=== PATIENT | male | born 1960 | race Asian ===

== ENCOUNTER → 2022-08-17 14:31 | Outpatient (CLI) | payer OTHER, SELFPAY ==
--- NOTE | 2022-08-17 | DI.MRI.S_ITS ---
PROCEDURE: MR LUMBAR SPINE WO CON INDICATIONS: Other intervertebral disc displacement, lumbar region TECHNIQUE: Noncontrast sagittal T1 spin echo and T2 fast echo, sagittal STIR, and T2 fast spin echo through the lumbar spine. In cases with scoliosis, additional coronal T2 fast spin echo may be performed. COMPARISON: None. FINDINGS: Image quality: Excellent. Alignment and Curvature: There is normal bony alignment. Bone Marrow: Marrow is of normal overall signal. No acute vertebral body compression fractures. Spinal Cord: Conus medullaris terminates at the L1-2 level. Visualized cord demonstrates normal signal and size. Abnormal tethering of the spinal roots posterior to the L2 and L3 vertebral bodies. Paraspinous Soft Tissues: No paravertebral masses. T12-L1: Normal appearance. L1-L2: Mild disc height loss. L2-L3: Mild disc height loss with ligamentum flavum hypertrophy causing mild spinal canal narrowing. L3-L4: Severe disc height loss. Broad-based disc bulge. Annular fissure. Facet hypertrophy and ligamentum flavum hypertrophy causing severe spinal canal narrowing. L4-L5: Broad-based disc bulge. Annular fissure. Facet hypertrophy and ligamentum flavum hypertrophy causing moderate to severe spinal canal narrowing. L5-S1: Broad-based disc bulge. 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 Multilevel degenerative disc disease and facet arthrosis. Of note, there is severe spinal canal narrowing at L3-4, mild spinal canal narrowing at L2-3 and moderate to severe spinal canal narrowing at L4-5. Dictated by: Tacho Beatty M.D. on 08/17/2022 at 17:05 Approved by: Tacho Beatty M.D. on 08/17/2022 at 17:09
== END ==
PROVIDERS: PCP Family Medicine; Referring Provider Physical Medicine & Rehabilitation Pain Medicine; Visit Provider Physical Medicine & Rehabilitation Pain Medicine
DX: M51.26 Other intervertebral disc displacement, lumbar region (principal); M47.816 Spondylosis without myelopathy or radiculopathy, lumbar region; M51.36 Other intervertebral disc degeneration, lumbar region; M48.061 Spinal stenosis, lumbar region without neurogenic claudication
CPT/HCPCS: 72148

== ENCOUNTER 2023-04-17 08:22 | Inpatient (IN) | payer OTHER, SELFPAY ==
[2023-04-12 09:43] VITALS: BMI 30.9
[2023-04-17] VITALS (33 sets, daily range): BP systolic 92–141; BP diastolic 52–84; PULSE 80–109; RESP 15–37; TEMP 36.3–37.2; O2SAT 92–100; BMI 29.0
[2023-04-17] MEDS: LACTATED RINGERS 1,000 ML 42 ML IV ×2 (09:46→12:57)
[2023-04-17] MEDS: ACETAMINOPHEN 325 MG TABLET 975 MG PO (09:46)
[2023-04-17] MEDS: FAMOTIDINE 20 MG/2 ML VIAL IV (09:48)
--- NOTE | 2023-04-17 09:52 | SUR.PREOP ---
Began on incentive spirometry. Able to achieve 1750ml
[2023-04-17 10:56] LABS: Allen Test for ABG Passed? Yes, Passed; Blood Gas Collection Site Right Radial; Fractionated Inspired Oxygen 21; HCO3 ABG 25 mmol/L (23-27); Oxygen Saturation ABG 90 % (95-100); PCO2 ABG 39.5 mmHg (35-45); PO2 ABG 59 mmHg (80-100); TCO2 ABG 26 mmol/L (23-27)
--- NOTE | 2023-04-17 11:00 | PM.PREOP ---
Pre-operative Note Interval Note History & Physical reviewed/Exam performed by Physician: Yes Changes to H&P: No
[2023-04-17] MEDS: CEFAZOLIN 2 GM/100 ML PREMIX 100 ML IV ×2 (11:45→20:00)
--- NOTE | 2023-04-17 11:57 | SUR.OPER ---
Prone on spine table, head in foam head support, padded chest and pelvic supports, gel pad at knees, lower legs supported by pillows; nipples, genitalia and toes free of pressure, arms secured on foam padded arm boards at <90 degrees abduction. Tape over blanket at thigh secured to table.
[2023-04-17] MEDS: BUPIVACAINE LIPOSOME 266 MG/20 ML VIAL INJ (12:07)
[2023-04-17] MEDS: BUPIVACAINE 0.25% (PF) 30 ML, EPINEPHrine 0.15 MG INJ (12:08)
--- NOTE | 2023-04-17 13:52 | P.OP_ITS ---
Operative Date/Time/Diagnoses Date of procedure: 04/17/23 Time of procedure: 11:40 Pre-op diagnosis: 1. L3-4, L4-5 spinal stenosis with neurogenic claudication 2. L3-4 disc herniation with radiculopathy Post-op diagnosis: same Procedure & Clinicians Procedure: 1. L3-4 Postero-lateral and posterior interbody fusion 2. L3-4 interbody cage placement. 3. L3-4 decompressive laminectomy with bilateral facetecomies 4. L3-4 Posterior non-segmental instrumentation 5. L4-5 left hemilaminectomy 6. [place] of bone marrow from iliac crest 7. Utilization of microsurgical technique and operating microscope Same procedure as scheduled: Yes Indications: Patient has been having chronic back pain and worsening lumbar radiculopathy and symptoms of neurogenic claudication. Patient failed multiple conservative management with worsening pain weakness and numbness in his lower extremity. Patient has significant lumbar spinal stenosis with a annular cyst causing significant central and lateral recess stenosis at L3-4 and L4-5 level. Patient has been having difficulty performing activity of daily living. After discussing risks benefits of treatment options, patient elected proceed with surgery. Patient was medically optimized prior to scheduling his surgery. Patient's PCP and director of search engine optimization assessed and medically optimized patient prior to scheduling surgery due to his history of long COVID infection with pulmonary fibrosis as result of his infection during the pandemic. Surgeon: Tha Spangler Philosophy Lecturer: Harika Porter Click Yes if Unassisted: No Anesthesia Type: General Operative Notes Closure Type: primary Specimen(s): none sent Prosthetic devices, grafts, tissues, transplants, or devices: Globus revolve screws, Rise cage Applied: catheter Estimated Blood Loss (mL): 200 Blood products transfused: none Procedure in detail: Patient was seen in the preoperative area. Risks and benefits of the surgery was discussed with the patient. Informed consent was obtained from the patient and placed in the chart. Surgical site was marked. Patient was taken to the operative room. General anesthesia was administered. Prophylactic antibiotic was given to the patient less than 30 min before the incision was made. Patient was placed into a prone position on the [place] table. Patient's back was then prepped and draped in the sterile fashion. Time-out was performed at this time. Using AP and lateral C-arm imaging the interval between L3-4 was identified and marked on patient's back. A 2 inch incision 2 in from midline was made on the left side first. The fascia was incised in line with skin incision. Globus MARS retractors was placed inside the incision and docked onto the L3-4 lamina. Using microsurgical technique and operating microscope, a L3 laminectomy and L3- 4 facetectomy was performed using a Kerrison rongeur. The laminectomy and facetectomy was performed in order to decompress patient's cauda equina as well as the nerve roots exiting at the L3-4 level. The disc space at L3-4 was stephanie ntified. And a total diskectomy was performed at L3-4 level. The endplates were decorticated using a rasp and shaver. The total diskectomy and decortication was performed at L3-4 level in order to to accomplish a L3-4 fusion. The local bone from the laminectomy and facetectomy was saved for local bone grafting. After the total diskectomy and decortication was completed, Globus viacell bone graft material was combined with local bone that was harvested earlier. At this time, a separate skin is incision was made over the iliac crest. A Jamshidi needle was inserted into the iliac crest through a separate skin incision. 5 cc of bone marrow aspiration was obtained through the separate skin incision using a Jamshidi needle from the iliac crest. The bone marrow aspiration was combined with local bone and the DBM bone grafting material. The bone grafting material was placed into the L3-4 interbody space along with a expandable cage. The cage was expanded to its maximum height using the torque limiting screwdriver. At this time the MARS retractor was redirected over the L4 lamina. Using microsurgical technique and operating microscope, a L4 heminectomy was performed using the Kerrison rongeur. The ligamentum flavum was also resected at the side of the hemilaminectomy for further decompression of the epidural space. At this time a mirror image incision was made on the right side. The fascia was incised in line with the skin incision. Globus MARS retractor was inserted and docked onto the L3-4 posterolateral gutter. Using the power drill, posterior- lateral decortication was performed at L3-4 level until bleeding cortical bone was identified. The remaining bone grafting material was placed into the L3-4 posterior lateral gutter he order to accomplish posterolateral fusion at the L3- 4 level. Using the double C-arm technique, pedicle screws were placed into the L3 and L4 pedicles bilaterally. This was done by placing the Jamshidi needle into the pedicles, then placing the guidewires over the Jamshidi needle, and finally placing the cannulated screws over the guidewires bilaterally. After the pedicle screws were placed, 2 titanium rods was locked into the heads of the pedicle screws using locking caps and torque limiting screwdriver. After all the hardware was placed, and confirmed with AP and lateral C-arm imaging, the wound was then irrigated with sterile normal saline and packed with Ray-Edmund gauze for 3 min to accomplish hemostasis. After the gauze was removed the deep fascia was closed with #1 Vicryl suture. The subcutaneous layer was closed with 2-0 Vicryl. The skin was closed with skin blayne. Patient tolerated the procedure well. There were no complications. The Operation could not have been safely performed without compromising the technical result or length of the procedure, without the assistance of a skilled surgical nurse practitioner. The surgical nurse practitioner was medically necessary for proper positioning, retraction and manipulation of instruments, proper exposure, surgical preparation, and manipulation of tissue. Complications: none Post-operative Condition: stable Disposition: PACU Plan for aftercare: Admit to inpatient hospital, will direct admit to ICU and keep patient intubated per anesthesia, Dr. Zarate, recommendation. Patient has history of long COVID with extended period of mechanical ventilation in the past with pulmonary fibrosis resulting from his COVID infection/mechanical ventilation in the past. Will attempt extubate tomorrow.
--- NOTE | 2023-04-17 13:53 | DI.RAD.S_ITS ---
PROCEDURE: XR LUMBAR SPINE 2-3V INDICATIONS: L3-4 TLIF TECHNIQUE: 3 views of the lumbar spine were acquired. COMPARISON: None. FINDINGS: 2 intraoperative fluoroscopy images demonstrate discectomy and posterior fusion at L3-L4. Expected postsurgical changes are noted. IMPRESSION: Expected postsurgical changes with discectomy and posterior fusion at L3-L4 Dictated by: Jefferson Colindres M.D. on 04/17/2023 at 14:51 Approved by: Jefferson Colindres M.D. on 04/17/2023 at 14:52
--- NOTE | 2023-04-17 15:00 | DI.RAD.S_ITS ---
PROCEDURE: XR CHEST 1V INDICATIONS: eval ET tube and OG tube TECHNIQUE: One view of the chest was acquired. COMPARISON: None. FINDINGS: Surgical changes and devices: There is an endotracheal tube 3.7 cm above edward. There is an orogastric tube with the tip in the stomach. Lungs and pleura: Bilateral pulmonary infiltrates are present. No pleural effusions or pneumothorax. Mediastinum: Mediastinal contours appear normal. Heart size is normal. Bones and chest wall: No suspicious bony lesions. Overlying soft tissues appear unremarkable. IMPRESSION: 1. Endotracheal tube and orogastric tube as described. 2. Bilateral pulmonary infiltrates compatible with pulmonary edema or bilateral pneumonia. Dictated by: Jefferson Colindres M.D. on 04/17/2023 at 16:25 Approved by: Jefferson Colindres M.D. on 04/17/2023 at 16:26
--- NOTE | 2023-04-17 15:14 | PM.CN.EICU ---
History of Present Illness Consult details IF CAMERA ACTIVATED, patient seen via real-time interactive audiovisual communication: Camera activated Chief complaint: INPT Consent obtained for tele-operator catalyst concentration care: Yes Patient Location: ICU Provider location (State): Other participants/roles: RN Narrative: 62 yr old male with medical H/o of chronic resp failure on 2 L NC, pulmonary fibrosis 2/2 COVID pna 2019 requring chronic trach vent, H/o of HTN, GERD, CVA, JUVENTINO, BPH, her for/ s/p L3-4 Postero-lateral and posterior interbody fusion, pt was kept intubated post op, plan to eval for extubation on Am Assessment: Mechanical vent post op in the sitting of pul fibrosis/ chronic resp failure 2/2 COVID pna 2020 s/p L3-4 Postero-lateral and posterior interbody fusion H/o of HTN GERD, CVA JUVENTINO BPH Plan Keep on the vent for tonight and eval for vent liberation in am Sedation propofol and fentanyl drip, RAAS goal -1 Pending CXR & ABG Vent sitting 20/500/5/50% On pepcid SCD for vte ppx, consider adding chemical when ok with surgery Hold Losartan risk of hypotension and GRECIA Has cerda cath, watch I/O PFSH Medical History (Updated 04/12/23 @ 12:48 by Johana Robles, INDER) Oxygen dependent GERD (gastroesophageal reflux disease) Impaired renal function Numbness Vitamin D deficiency Plantar fasciitis Osteoarthritis Acute dermatitis BPH (benign prostatic hyperplasia) Low back pain Herpes simplex Diabetes Pulmonary fibrosis Chronic hypoxemic respiratory failure Critical illness polyneuropathy COVID-19 long hauler JUVENTINO on CPAP HLD (hyperlipidemia) HTN (hypertension) CVA (cerebral vascular accident) History of COVID-19 Surgical History (Updated 04/12/23 @ 10:02 by Johana Robles RN) Hx of tracheostomy (09/05/19) H/O vasectomy History of colonoscopy (01/10/12) Social History household members: spouse and children Smoking Status: Never smoker alcohol intake: current Current Medications Current Medications Medications: Home Medications aspirin 81 mg tablet,delayed release 81 mg PO DAILY 04/12/23 [History Confirmed 04/17/23] famotidine 20 mg tablet 20 mg PO BEDTIME 04/12/23 [History Confirmed 04/17/23] simvastatin 20 mg tablet 20 mg PO BEDTIME 04/12/23 [History Confirmed 04/17/23] telmisartan 40 mg tablet (Micardis) 40 mg PO BEDTIME 04/12/23 [History Confirmed 04/17/23] Exam Vital Signs (past 8 hours): - 04/17/23 09:13 Temperature 99.0 F Pulse Rate 89 Respiratory Rate 17 Blood Pressure 141/84 H Pulse Oximetry 97 Oxygen Delivery Method Nasal Cannula Oxygen Flow Rate 2 Oxygen Delivery Method Nasal Cannula Oxygen Flow Rate 2 Objective Labs Labs: Laboratory Results - last 24 hr 04/17/23 10:46 ABG Sample Site Right radial ABG pH 7.40 ABG pCO2 39.5 ABG pO2 59 L ABG HCO3 25 ABG Total CO2 26 ABG O2 Saturation 90 L ABG Base Excess 0.0 FiO2 21
--- NOTE | 2023-04-17 15:24 | PM.CALLCOV.1 ---
Call Coverage Note Note Narrative of Care Provided: Medicine consulted
[2023-04-17] MEDS: propofoL 1,000 MG/100 ML VIAL 2.517 MG IV (15:26)
[2023-04-17] MEDS: fentaNYL 1,000 MCG in DEXTROSE 5% IN WATER 230 ML 14.685 MCG IV (15:27)
--- NOTE | 2023-04-17 15:30 | PM.CN ---
History of Present Illness Consult details Date Patient Seen: 04/17/23 Time Patient Seen: 15:30 Chief complaint: INPT Reason for consult: Restraints Requesting provider: Tha Spangler Narrative: 62 yr old male with medical H/o of chronic resp failure on 2 L NC, pulmonary fibrosis 2/2 COVID pna 2020 requring chronic trach vent, H/o of HTN, GERD, CVA, JUVENTINO, BPH, her for/ s/p L3-4 Postero-lateral and posterior interbody fusion, pt was kept intubated post op. Vent being managed by the tele-computer systems technician. Reason for consultation at this time is for restraint orders as Orthopedics providers are not trained in restraints and tele-computer systems technician service will not put these in either. Patient is currently intubated, restraints are needed to prevent patient from removing ETT. Meds Home Medications and Allergies Home Medications Medication Instructions Recorded Confirmed Type aspirin 81 mg tablet,delayed 81 mg PO DAILY 04/12/23 04/17/23 History release famotidine 20 mg tablet 20 mg PO BEDTIME 04/12/23 04/17/23 History simvastatin 20 mg tablet 20 mg PO BEDTIME 04/12/23 04/17/23 History telmisartan 40 mg tablet (Micardis) 40 mg PO BEDTIME 04/12/23 04/17/23 History Allergies Allergy/AdvReac Type Severity Reaction Status Date / Time No Known Drug Allergies Allergy Verified 04/17/23 13:43 Review of Systems Review of Systems Narrative: Unable to perform as patient is intubated. Exam Vital Signs (past 8 hours): - 04/17/23 09:13 Temperature 99.0 F Pulse Rate 89 Respiratory Rate 17 Blood Pressure 141/84 H Pulse Oximetry 97 Oxygen Delivery Method Nasal Cannula Oxygen Flow Rate 2 Oxygen Delivery Method Nasal Cannula Oxygen Flow Rate 2 Narrative Exam Narrative: Gen: intubated, moving all extremities CV: RRR Objective ECG Impression: NSR with no ischemia Labs Labs: Laboratory Results - last 24 hr 04/17/23 10:46 ABG Sample Site Right radial ABG pH 7.40 ABG pCO2 39.5 ABG pO2 59 L ABG HCO3 25 ABG Total CO2 26 ABG O2 Saturation 90 L ABG Base Excess 0.0 FiO2 21 PFSH Medical History (Updated 04/12/23 @ 12:48 by Johana Robles RN) Oxygen dependent GERD (gastroesophageal reflux disease) Impaired renal function Numbness Vitamin D deficiency Plantar fasciitis Osteoarthritis Acute dermatitis BPH (benign prostatic hyperplasia) Low back pain Herpes simplex Diabetes Pulmonary fibrosis Chronic hypoxemic respiratory failure Critical illness polyneuropathy COVID-19 long hauler JUVENTINO on CPAP HLD (hyperlipidemia) HTN (hypertension) CVA (cerebral vascular accident) History of COVID-19 Surgical History (Updated 04/12/23 @ 10:02 by Johana Robles RN) Hx of tracheostomy (09/05/19) H/O vasectomy History of colonoscopy (01/10/12) Social History household members: spouse and children Tobacco & Substance Use Smoking Status: Never smoker alcohol intake: current Assessment & Plan Assessment & Plan narrative: 62 yr old male with medical H/o of chronic resp failure on 2 L NC, pulmonary fibrosis 2/ COVID pna 2019 requring chronic trach vent, H/o of HTN, GERD, CVA, JUVENTINO, BPH, her for/ s/p L3-4 Postero-lateral and posterior interbody fusion, pt was kept intubated post op. Vent being managed by the tele-computer systems technician. Reason for consultation at this time is for restraint orders as Orthopedics providers are not trained in restraints and tele-computer systems technician service will not put these in either. 1. Acute on chronic hypoxemic respiratory failure - continue management per tele-computer systems technician service - patient requires restraints to prevent removal of ETT at this time as he is unable to reliably follow commands while on sedation for continued ventilator management of his respiratory failure. Code: full, surrogate is patient's spouse DVT: per primary I have utilized all available immediate resources to obtain, update, or review the patient's current medications. Discussed above with orthpedics provider and MASTER DATA ANALYST, and ammunition assembly ii laborer.
[2023-04-17] MEDS: ALBUTEROL/IPRATROPIUM 3 ML AMPUL INH (15:35)
[2023-04-17] MEDS: LACTATED RINGERS 1,000 ML 125 ML IV (15:35)
[2023-04-17 15:56] LABS: Blood Gas Other Coll. Site A-LINE; Fractionated Inspired Oxygen 35; HCO3 ABG 22 mmol/L (23-27); Oxygen Saturation ABG 99 % (95-100); PCO2 ABG 38.8 mmHg (35-45); PO2 ABG 137 mmHg (80-100); TCO2 ABG 23 mmol/L (23-27); pH ABG 7.36 (7.35-7.45)
--- NOTE | 2023-04-17 16:23 | RT ---
PT EXTUBATED POST SUCCESSFUL WEANING TRIAL PER ORDER BY DR. HARGROVE. ABG NOT NEED PER ORDER POST TRIAL.
[2023-04-17] MEDS: HYDROMORPHONE 0.5 MG INJ IV (16:45)
[2023-04-17 16:46] LABS: Add Manual Diff / Slide Review NO; Basophils Absolute Auto 0 /uL (0-100); Basophils Percent Auto 0.1 % (0-2); Eosinophils Absolute Auto 0 /uL (0-450); Eosinophils Percent Auto 0.1 % (2-4); Hematocrit 42.1 % (41-53); Hemoglobin 14.4 g/dL (13.5-17.5); Lymphocytes Absolute Auto 1100 /uL (1100-4500); Lymphocytes Percent Auto 5.2 % (25-40); Mean Corpuscular HGB Conc 34.2 % (30-36); Mean Corpuscular Hemoglobin 32.5 PG (26-34); Mean Corpuscular Volume 95.1 fL (80-100); Monocytes Absolute Auto 1000 /uL (0-900); Monocytes Percent Auto 4.7 % (3-14); Neutrophils Absolute Auto 18400 /uL (1500-7000); Neutrophils Percent Auto 89.9 % (50-75); Platelet Count 200 X10^3/uL (150-400); Red Blood Cell Count 4.43 X10^6/uL (4.5-5.9); Red Cell Distribution Width 12.7 % (11.6-14.8); White Blood Cell Count 20.5 X10^3/uL (4.5-11.0)
[2023-04-17 17:30] LABS: Albumin 3.8 g/dL (3.5-5.0); BUN Creatinine Ratio 13.1 (6-22); Blood Urea Nitrogen 14 mg/dL (9-20); Calcium 9.3 mg/dL (8.4-10.2); Carbon Dioxide 22 mmol/L (22-32); Chloride 103 mmol/L (98-107); Estimated Glomerular Filt Rate > 60 mL/min (>60); Glucose 159 mg/dL (80-110); HEMOLYSIS 41 (0-50); Phosphorous 3.3 mg/dL (2.3-3.7); Potassium 4.1 mmol/L (3.4-5.1); Sodium 135 mmol/L (137-145)
--- NOTE | 2023-04-17 18:53 | PC.NURSE ---
1450 pt arrived in rm 227 intubated from the OR. placed on the vent per RT 50% fio2 500TV, rate 20 peep +5. Propofol in progress at 35mcg/kg and pt awake, responding to commands. order received for restraints, OG tube and cerda cath. Pt continued awake and trying to communicate, EICU called re pt awake status and orders received to place on pressure support 5/5 - Pt extubated per RT @ 1715. VSS, [place] removed, cerda and OG removed. Pt awake and talking.
[2023-04-17 19:43] LABS: MRSA (Nasal) PCR Not Detected (Not Detect)
[2023-04-17] MEDS: OXYCODONE IR 10 MG TABLET PO (19:47)
[2023-04-17] MEDS: ATORVASTATIN 20 MG TABLET 10 MG PO (20:53)
[2023-04-17] MEDS: SENNOSIDES 8.6 MG TABLET 17.2 MG PO (20:54)
[2023-04-17] MEDS: DOCUSATE 100 MG CAPSULE PO (20:54)
[2023-04-17] MEDS: FAMOTIDINE 20 MG TABLET PO (20:54)
[2023-04-18] VITALS (40 sets, daily range): BP systolic 119–138; BP diastolic 57–82; PULSE 76–110; RESP 16–35; TEMP 36.4–37.9; O2SAT 89–100
[2023-04-18] MEDS: LACTATED RINGERS 1,000 ML 125 ML IV (00:05)
[2023-04-18] MEDS: OXYCODONE IR 10 MG TABLET PO ×5 (00:12→17:41)
[2023-04-18] MEDS: CEFAZOLIN 2 GM/100 ML PREMIX 100 ML IV (03:15)
[2023-04-18] MEDS: ACETAMINOPHEN 325 MG TABLET 650 MG PO ×3 (04:26→17:41)
--- NOTE | 2023-04-18 08:24 | PM.PNPO.1 ---
Subjective Subjective Date Patient Seen: 04/18/23 Time Patient Seen: 08:00 Interval history: Patient is found today lying in bed. He is just voided on his own. Complains of pain in his back. Says that he would like cough but whenever he does so he has pain in his back. Denies feeling feverish or ill but his is concerned that he is warm to the touch. Denies any new numbness or tingling down his lower legs. Exam Vital Signs (past 8 hours): - 04/18/23 04:00 04/18/23 04:26 04/18/23 04:26 Temperature 100.3 F H 100.3 F H 100.3 F H Pulse Rate 97 H Respiratory Rate 22 Blood Pressure 125/71 Pulse Oximetry 95 Oxygen Flow Rate 3 04/18/23 05:03 04/18/23 06:00 04/18/23 06:39 Temperature 100.3 F H 100 F H 100 F H Pulse Rate Respiratory Rate Blood Pressure Pulse Oximetry Oxygen Flow Rate 04/18/23 08:07 Temperature 99.1 F Pulse Rate 110 H Respiratory Rate 30 H Blood Pressure 119/57 L Pulse Oximetry 92 Oxygen Flow Rate 3 Oxygen Delivery Method Nasal Cannula,CPAP Oxygen Flow Rate 3 Narrative Exam Narrative: Dressing is well-maintained no signs of drainage. Able to dorsal and plantar flex against resistance bilaterally. No posterior calf or thigh pain bilaterally. Resp Effort & Inspection: normal respiratory effort and able to speak in complete sentences Objective Imaging Chest x-ray: Radiologist's impression: Bilateral pulmonary infiltrates Labs 04/17/23 16:30 04/17/23 16:30 Labs: Laboratory Results - last 24 hr 04/17/23 04/17/23 04/17/23 10:46 15:47 16:30 WBC 20.5 H RBC 4.43 L Hgb 14.4 Hct 42.1 MCV 95.1 MCH 32.5 MCHC 34.2 RDW 12.7 Plt Count 200 Neut % (Auto) 89.9 H Lymph % (Auto) 5.2 L [place] % (Auto) 4.7 Eos % (Auto) 0.1 L Baso % (Auto) 0.1 Neut # (Auto) 40423 H Lymph # (Auto) 1100 [place] # (Auto) 1000 H Eos # (Auto) 0 Baso # (Auto) 0 Sample Site A-line ABG Sample Site Right radial ABG pH 7.40 7.36 ABG pCO2 39.5 38.8 ABG pO2 59 L 137 H ABG HCO3 25 22 L ABG Total CO2 26 23 ABG O2 Saturation 90 L 99 ABG Base Excess 0.0 -4.0 L FiO2 21 35 Sodium 135 L Potassium 4.1 Chloride 103 Carbon Dioxide 22 BUN 14 Creatinine 1.07 Estimated GFR > 60 BUN/Creatinine Ratio 13.1 Glucose 159 H Calcium 9.3 Phosphorus 3.3 Albumin 3.8 Nasal Screen MRSA (PCR) 04/17/23 16:46 WBC RBC Hgb Hct MCV MCH MCHC RDW Plt Count Neut % (Auto) Lymph % (Auto) [place] % (Auto) Eos % (Auto) Baso % (Auto) Neut # (Auto) Lymph # (Auto) [place] # (Auto) Eos # (Auto) Baso # (Auto) Sample Site ABG Sample Site ABG pH ABG pCO2 ABG pO2 ABG HCO3 ABG Total CO2 ABG O2 Saturation ABG Base Excess FiO2 Sodium Potassium Chloride Carbon Dioxide BUN Creatinine Estimated GFR BUN/Creatinine Ratio Glucose Calcium Phosphorus Albumin Nasal Screen MRSA (PCR) Not detected [facility] Medical History (Updated 04/12/23 @ 12:48 by Johana Robles RN) Oxygen dependent GERD (gastroesophageal reflux disease) Impaired renal function Numbness Vitamin D deficiency Plantar fasciitis Osteoarthritis Acute dermatitis BPH (benign prostatic hyperplasia) Low back pain Herpes simplex Diabetes Pulmonary fibrosis Chronic hypoxemic respiratory failure Critical illness polyneuropathy COVID-19 long hauler JUVENTINO on CPAP HLD (hyperlipidemia) HTN (hypertension) CVA (cerebral vascular accident) History of COVID-19 Surgical History (Updated 04/12/23 @ 10:02 by Johana Robles RN) Hx of tracheostomy (09/05/19) H/O vasectomy History of colonoscopy (01/10/12) Social History household members: spouse and children Smoking Status: Never smoker alcohol intake: current Assessment & Plan Post-op Postoperative Procedures: Procedures Operation Date: 04/17/23 10:45 Actual Procedure Side Surgeon p L3-4 TLIF L4-5 left hemilaminectomy Tha Spangler MD Postoperative day: 1 Postoperative status: doing well Postoperative status narrative: Intubate of tube and restraints were removed yesterday. X-rays performed yesterday read as pulmonary bilateral infiltrates. Pain controlled with oral medications. Postoperative plan narrative: Multimodal pain control. Work with physical therapy today. Contacted on-call director fixed income. Upon his review of the case did not feel the patient had acute pneumonia. Upon review of his lab findings recommend the following orders. 1. Downgrade out of ICU to acute care. 2. Order CBC, procalcitonin and sputum culture. 3. Consult hospitalist for medical management. Hospitalist was notified. Time Spent With Patient Time with patient: less than 15 minutes Quality VTE Deep Vein Thrombosis/Pulmonary Embolism Present on Admission: No
[2023-04-18] MEDS: DOCUSATE 100 MG CAPSULE PO ×2 (08:31→20:43)
[2023-04-18 10:11] LABS: Add Manual Diff / Slide Review NO; Basophils Absolute Auto 100 /uL (0-100); Basophils Percent Auto 0.4 % (0-2); Eosinophils Absolute Auto 0 /uL (0-450); Eosinophils Percent Auto 0.1 % (2-4); Hematocrit 40.4 % (41-53); Hemoglobin 13.7 g/dL (13.5-17.5); Lymphocytes Absolute Auto 900 /uL (1100-4500); Lymphocytes Percent Auto 5.6 % (25-40); Mean Corpuscular HGB Conc 33.8 % (30-36); Mean Corpuscular Hemoglobin 31.9 PG (26-34); Mean Corpuscular Volume 94.4 fL (80-100); Monocytes Absolute Auto 1400 /uL (0-900); Monocytes Percent Auto 8.8 % (3-14); Neutrophils Absolute Auto 13800 /uL (1500-7000); Neutrophils Percent Auto 85.1 % (50-75); Platelet Count 209 X10^3/uL (150-400); Red Blood Cell Count 4.28 X10^6/uL (4.5-5.9); White Blood Cell Count 16.3 X10^3/uL (4.5-11.0)
[2023-04-18 10:15] LABS: Alanine Aminotransferase 29 IU/L (<50); Albumin Globulin Ratio 1.1 (1.0-2.8); Alkaline Phosphatase 69 U/L (38-126); Aspartate Aminotransferase 85 IU/L (17-59); BUN Creatinine Ratio 11.3 (6-22); Bilirubin Total 1.1 mg/dL (0.2-1.3); Blood Urea Nitrogen 11 mg/dL (9-20); Calcium 9.3 mg/dL (8.4-10.2); Carbon Dioxide 27 mmol/L (22-32); Chloride 97 mmol/L (98-107); Estimated Glomerular Filt Rate > 60 mL/min (>60); Globulin 3.5 g/dL (1.7-4.1); Glucose 149 mg/dL (80-110); HEMOLYSIS < 15 (0-50); Magnesium 1.8 mg/dL (1.6-2.3); Potassium 3.8 mmol/L (3.4-5.1); Sodium 133 mmol/L (137-145); Total Protein 7.5 g/dL (6.3-8.2)
[2023-04-18 10:31] LABS: Procalcitonin 0.23 ng/mL (<0.5)
[2023-04-18 11:32] LABS: Adenovirus Not Detected (Not Detect); B. parapertussis Not Detected (Not Detecte); Bordetella pertussis Not Detected (Not Detect); Chlamydophila pneumoniae Not Detected (Not Detect); Coronavirus 229E Not Detected (Not Detect); Coronavirus HKU1 Not Detected (Not Detect); Coronavirus NL 63 Not Detected (Not Detect); Coronavirus OC43 Not Detected (Not Detect); Human Metapneumovirus Not Detected (Not Detect); Human Rhinovirus/Enterovirus Not Detected (Not Detect); Influenza A Not Detected (Not Detect); Influenza B Not Detected (Not Detect); Mycoplasma pneumoniae Not Detected (Not Detect); Parainfluenza Virus 1 Not Detected (Not Detect); Parainfluenza Virus 2 Not Detected (Not Detect); Parainfluenza Virus 3 Not Detected (Not Detect); Parainfluenza Virus 4 Not Detected (Not Detect); Respiratory Syncytial Virus Not Detected (Not Detect); SARS- CoV-2 Not Detected (Not Detecte)
--- NOTE | 2023-04-18 11:45 | OT.IP.EVAL ---
Current Diagnoses Spondylosis without myelopathy or radiculopathy, lumbar region (04/17/23) Spinal stenosis, lumbar region with neurogenic claudication (04/17/23) Surgery Performed Operation Date: 04/17/23 10:45 Actual Procedures p L3-4 TLIF L4-5 left hemilaminectomy - Tha Spangler MD Past Medical History (Last Updated 04/12/23 @ 12:48 by Johana Robles, RN) Acute dermatitis BPH (benign prostatic hyperplasia) Chronic hypoxemic respiratory failure COVID-19 long hauler Critical illness polyneuropathy CVA (cerebral vascular accident) Diabetes GERD (gastroesophageal reflux disease) Herpes simplex History of COVID-19 HLD (hyperlipidemia) HTN (hypertension) Impaired renal function Low back pain Numbness JUVENTINO on CPAP Osteoarthritis Oxygen dependent Plantar fasciitis Pulmonary fibrosis Vitamin D deficiency Surgical History (Last Updated 04/12/23 @ 10:02 by Johana Robles RN) H/O vasectomy History of colonoscopy (01/10/12) Hx of tracheostomy (09/05/19) Occupational Therapy Inpatient Evaluation/Re-Eval M1 PT/OT-IP Prior Functional Status Start: 04/18/23 11:49 Freq: NEEDED Status: Active Protocol: Document 04/18/23 11:50 [facility] (Rec: 04/18/23 12:08 [facility] [id number]) Medical Review Prior Functional Status Communication independent Mobility and Gait Independent and did not use a device but had pain. Activities of Daily Living and IADL's Pt had pain during ADL and IADl needs. Social History Household Members spouse,children Living Arrangements House Number of Floors (Floors) One Floor Number of Stairs To Enter/Railing? NO steps. Home Environment Standard Height Toilet,Tub/ Shower Home Equipment Four Wheel Walker,Bed Rails Additional Social History Comment Pt to be able to stay at home with him to assist. Pt has a high bed at home and use of a step. M2 OT-IP Current Condition Start: 04/18/23 11:49 Freq: Status: Active Protocol: Document 04/18/23 11:50 [facility] (Rec: 04/18/23 12:08 [facility] [id number]) Occupational Therapy Current Condition Current Condition Evaluation Date 04/18/23 Treatment Diagnosis S/P L3-4 TLIF, L4-5 left hemilaminectomy, acute on chronic hypoxemic Diagnosis Onset Date 04/17/23 M3 OT- IP Subjective and Pain Start: 04/18/23 11:49 Freq: Status: Active Protocol: Document 04/18/23 11:50 [facility] (Rec: 04/18/23 12:08 [facility] [id number]) OT- Subjective Occupational Therapy Visit Type Type Initial Evaluation Visit Start Time 11:20 Visit Stop Time 11:45 Total Visit Minutes 25 Occupational Therapy Visit Comments Patient Comments Pt wanting to get up. Patient/Caregiver Goals TO go home. OT Pain Assessment Pain When Pain Assessed At Rest Pain Present Pain Present Denied Pain M4 OT- IP ADL's Start: 04/18/23 11:49 Freq: Status: Active Protocol: Document 04/18/23 11:50 [facility] (Rec: 04/18/23 12:08 [facility] [id number]) OT [id number] Comments OT Self-Feeding Comments NOt at meal time, no issues anticipated. OT ADL-Grooming Comments OT Grooming Comments Not performed. OT ADL-Oral Care Comments Oral Care Comments Not performed. OT ADL-Dressing General Eval Lower Body Dressing Ability Maximum Assistance Areas Needing Assistance Socks Comments OT Dressing Comments Pt has a supportive to assist for his needs. OT ADL-Toileting General Evaluation Toileting Ability Minimal Assistance Areas Needing Assistance Perform Perineal Hygiene Comments OT Toileting Comments Pt able to stand with the FWW with TONI and assist to hold the urinal in place. OT ADL-Bathing Comments OT Bathing Comments Not performed, pt will benefit from a shower chair and HHS spray. Educated pt's best to cover the dressing for showering needs. M5 OT- IP IADL's Start: 04/18/23 11:49 Freq: Status: Active Protocol: Document 04/18/23 11:50 [facility] (Rec: 04/18/23 12:08 [facility] [id number]) OT-Instrumental Activities of Daily Living Deficits IADL Deficits Identified Deficits Home Safety Awareness Home Safety Comments Pt has a supportive to assist with his needs. Meal Preparation Meal Preparation Caregiver Provides Assist Hairspring Studder Hairspring Studder Caregiver Provides Assist M6 OT- IP Functional Cognition Start: 04/18/23 11:49 Freq: Status: Active Protocol: Document 04/18/23 11:50 [facility] (Rec: 04/18/23 12:08 [facility] [id number]) Cognitive Factors Limiting Selfcare Function Cognitive Ability Level of Alertness Alert Patient Orientation Name,Age,Birthday,Month,Date, Year,Day of Week,Place, Situation Attention Span Ability Capable of Focused Attention, Capable of Sustained Attention Ability to Follow Commands Able to Follow One Step Commands Cognitive Comments Cognitive Assessment Comments Pt able to states his back precautions and needing reminders to slow down. VC for hand placement as pt tends to want to grab the FWW to stand . Pt is also a little impulsive. OT- Vision and Hearing OT- Hearing Assessment OT- Hearing Assessment WFL M7 OT- IP Mobility and Balance Start: 04/18/23 11:49 Freq: Status: Active Protocol: Document 04/18/23 11:50 [facility] (Rec: 04/18/23 12:08 [facility] [id number]) OT- Bed Mobility Assessment Supine to Sit Supine to Sit Assist Standby Assistance OT-Transfer Assessment Sit to and From Stand Sit to and from Stand Minimal Assistance,2 Person Assistance Transfers Transfer Ability Minimal Assistance,2 Person Assistance Technique Transfer Destination Bed,Chair Transfer Technique Stand Step Pivot Devices Transfer Assistive Devices Gait Belt,Front Wheeled Walker Comments Mobility Comments SBA with use of bed rail to get up. TONI x2 to stand to the FWW and for the transfer- assist for balance and to help guide the FWW and manage all the tubing needs. OT- Balance Assessment Sitting Balance and Reactions Static Sitting Balance Ability Good Dynamic Sitting Balance Ability Fair Standing Balance and Reactions Static Standing Balance Ability Fair Dynamic Standing Balance Ability Poor M9 OT- IP Assessment and Plan Start: 04/18/23 11:49 Freq: Status: Active Protocol: Document 04/18/23 11:50 [facility] (Rec: 04/18/23 12:08 [facility] [id number]) OT Summary Assessment and Plan Potential Rehabilitation Potential Good Analytic Complexity at Evaluation High Summary OT Impairments Strength,Balance,Functional Mobility,Grooming,Dressing, Toileting,Bathing,Toilet Transfers,Shower Transfers, Activity Tolerance Progress Towards Goals Progressing Toward Goals Assessment Summary Pt high complexity due to recent back sx and acue on chronic hypoxemic respiratory failure and main barriers are a little impulsive, and will now need assist for ADL and mobility needs. Pt has a very supportive to be able to assist pt at home. Continue to do caregiver training ,go over LB dressing equipment needs and pt to go home with assist with medically stable. Goals Grooming Goal Independent Dressing Goal Minimal Assistance Toileting Goal Independent Bathing Goal Standby Assistance Toilet Transfer Goal Independent Shower Transfer Goal Standby Assistance Days to Meet Goals 5 Frequency of Treatment Frequency Of Treatment Once a Day Treatment Plan OT Treatment Plan ADL Training,Functional Mobility,Patient/Family Education,Discharge Planning Discharge Recommendations OT Discharge Recommendations Home with Assistance Home Equipment Needs shower chair, hand held shower spray Transportation Needs at Discharge Private Vehicle
--- NOTE | 2023-04-18 12:01 | PT.IIE ---
Current Diagnoses Spondylosis without myelopathy or radiculopathy, lumbar region (04/17/23) Spinal stenosis, lumbar region with neurogenic claudication (04/17/23) Surgery Performed Operation Date: 04/17/23 10:45 Actual Procedures p L3-4 TLIF L4-5 left hemilaminectomy - Tha Spangler MD Surgical History (Last Updated 04/12/23 @ 10:02 by Johana Robles, RN) H/O vasectomy History of colonoscopy (01/10/12) Hx of tracheostomy (09/05/19) Medical History (Last Updated 04/12/23 @ 12:48 by Johana Robles, RN) Acute dermatitis BPH (benign prostatic hyperplasia) Chronic hypoxemic respiratory failure COVID-19 long hauler Critical illness polyneuropathy CVA (cerebral vascular accident) Diabetes GERD (gastroesophageal reflux disease) Herpes simplex History of COVID-19 HLD (hyperlipidemia) HTN (hypertension) Impaired renal function Low back pain Numbness JUVENTINO on CPAP Osteoarthritis Oxygen dependent Plantar fasciitis Pulmonary fibrosis Vitamin D deficiency Physical Therapy Inpatient Evaluation/Re-Eval M1 PT/OT-IP Prior Functional Status Start: 04/18/23 08:25 Freq: NEEDED Status: Active Protocol: Document 04/18/23 11:20 [facility] (Rec: 04/18/23 12:01 [facility] [id number]) Medical Review Prior Functional Status Medical History Reviewed Yes Communication WNLs Mobility and Gait Pt reports he is I at baseline and has not used his rollator that he got after he had COVID in 2020 for a long time Activities of Daily Living and IADL's I Social History Household Members spouse,children Living Arrangements House Number of Stairs To Enter/Railing? No steps to enter Home Environment Standard Height Toilet,Tub/ Shower Home Equipment Four Wheel Walker Employment Status Unknown M2 PT-IP Current Condition Start: 04/18/23 08:25 Freq: NEEDED Status: Active Protocol: Document 04/18/23 11:20 [facility] (Rec: 04/18/23 12:01 [facility] [id number]) Physical Therapy Current Condition Current Condition Evaluation Date 04/18/23 Treatment Diagnosis L3-4 posterior interbody fusion, L4-5 L hemilaminectomy M3 PT-IP Subjective Start: 04/18/23 08:25 Freq: NEEDED Status: Active Protocol: Document 04/18/23 11:20 [facility] (Rec: 04/18/23 12:01 [facility] [id number]) Subjective Physical Therapy Visit Type Type Initial Evaluation Visit Start Time 11:20 Visit Stop Time 11:40 Total Visit Minutes 20 Number of RADIOLOGY INTERVENTIONAL PHYSICIAN Visits 0 Physical Therapy Visit Comments Patient Comments When can I bungee jump? Therapy Pain Assessment Pain When Pain Assessed During Mobility Pain Present Pain Present Pain Reported Location Back Intensity 2 Scale Used Numeric (0 - 10) Description Acute Pain Behaviors Guarding M4 PT-IP Mobility and Gait Start: 04/18/23 08:25 Freq: NEEDED Status: Active Protocol: Document 04/18/23 11:20 [facility] (Rec: 04/18/23 12:01 [facility] [id number]) PT-Bed Mobility Assessment Rolling Type of Rolling Log Rolling,Roll to Right Level of Assist Contact Guard Assistance,1 Person Assistance Supine to Sit Supine to Sit Contact Guard Assistance,1 Person Assistance,Bedrails Scooting Scooting to Edge of Bed Contact Guard Assistance PT-Transfer Assessment Sit to and From Stand Sit to and from Stand Minimal Assistance,2 Person Assistance,Use of Upper Extremities Equipment Transfer Assistive Device Gait Belt,Front Wheeled Walker Orthotic/Prosthetic Devices or Brace: No Transfers Transfer Destination Chair Transfer Technique Stepping with RW Transfer Ability Level of Assist Minimal Assistance,2 Person Assistance,Use of Upper Extremities Comments Mobility Comments +2 person min A for mobility this first time OOB in the ICU given multiple lines and pt's respiratory history. His O2 sats on 2L remain 90-92% when checked during treatment and he does get tachycardic with HR up to 127 BPM. He does not c/o high pain and does appear to fatigue quickly: +2 assistance for safety and for line management Gait Assessment Gait Gait Assistance Required: Minimum Assistance,2 Person Assist Distance (Feet) 3 Able to Maintain Weight Bearing Status Yes During Gait Assistive Devices Assistive Device Gait Belt,Front Wheeled Walker Orthotic/Prosthetic Devices or Brace: No Gait Deviations General Gait Pattern Antalgic Factors Limiting Gait Function Factors Limiting Gait Function Decreased Activity Tolerance, Poor Balance,Poor Safety Awareness,Respiratory Distress Comments Gait Comments Pt with slow mobility, decreased step-length and foot clearance, cues to stay on task as he is easily distractable PT-Balance Assessment Sitting Balance and Reactions Static Sitting Balance Ability Fair Dynamic Sitting Balance Ability Fair Standing Balance and Reactions Static Standing Balance Ability Fair Dynamic Standing Balance Ability Fair Device Used RW M5 PT-IP Objective Assessments Start: 04/18/23 08:25 Freq: NEEDED Status: Active Protocol: Document 04/18/23 11:20 [facility] (Rec: 04/18/23 12:01 [id number]) Orientation Orientation/Cognition Level of Alertness Alert Orientation Name,Age,Birthday,Month,Date, Year,Day of Week,Place, Situation Language Function Ability No Deficits Noted Safety Awareness Decreased Safety Awareness Memory Description Short Term Impaired,Insolvency Practitioner Impaired Gross Range of Motion Upper Extremity ROM Impairments Defer to OT Lower Extremity ROM Assessment Left Impaired Impairments LLE has decreased muscle mass compared to the right and pt states it is d/t polyneuropathy from when he had COVID in 2019 and was on the vent for 4 months Strength Lower Extremity Strength Assessment Left Impaired Comments Strength Comments Pt does not tolerate MMT today and his LLE appears to have less muscle mass than the right Sensation Assessment Comments Sensation Comments Polyneuropathy affecting LLE the most post-covide and intubated for 4 months in 2019 M6 PT-IP Treatment Start: 04/18/23 08:25 Freq: NEEDED Status: Active Protocol: Document 04/18/23 11:20 [facility] (Rec: 04/18/23 12:01 [id number]) Physical Therapy Treatment Education Education Provided Post-Op Packet,Safety M7 PT-IP Assessment and Plan Start: 04/18/23 08:25 Freq: NEEDED Status: Active Protocol: Document 04/18/23 11:20 [facility] (Rec: 04/18/23 12:01 [id number]) PT Summary Assessment and Plan Potential Rehabilitation Potential Fair Status of Condition at Evaluation Evolving Summary Impairments Pain,Balance,Bed Mobility, Transfers,Gait,Activity Tolerance Progress Towards Goals Slow Progress due to Medical Issues Assessment Summary Pt is a pleasant 62 y/o who jokes freely and is somewhat impulsive on the evaluation. Evaluation is in the ICU and pt is hooked up to many lines and is wearing 2L O2, which he also uses at home since he had COVID and was on the vent for 4 months in 2019. Pt has tachycardia on the evaluation and requires 2 person min A for the first time up. He will benefit from ongoing PT in the acute and post-acute settings to improve functional mobility. Pt would like to go home with his and do OPPT in [place] when he is cleared by surgeon. Goals Bed Mobility Goal Independent Transfer Goal Independent,Front Wheeled Walker Gait Goal Independent,Front Wheel Walker Gait Distance 100 Other Goals Pt may progress to LRAD as appropriate. He has a 4WRW at home. Days to Meet Goals 5 Frequency of Treatment Frequency Of Treatment Twice a Day Treatment Plan Physical Therapy Treatment Plan Bed Mobility Training,Transfer Training,Gait Training, Therapeutic Exercise,Balance Retraining,Post Op Education, Discharge Planning, Neuromuscular Re-ed Precautions Lumbar Precautions Log Roll,No Twisting,Limit Bending,Lifting Restriction of 10 lbs,Gait Belt above Incisional Area Weight Bearing Status Weight Bearing Status Weight Bear as Tolerated Recommendations To Nursing Amount of Assist Needed 2 Person Assist Discharge Recommendations PT Discharge Recommendations Home with 21/11 Assist Available,Outpatient PT Transportation Needs at Discharge Private Vehicle
--- NOTE | 2023-04-18 13:49 | P.PN_ITS ---
Subjective Subjective Interval history: Extubated successfull this morning. Currently on 3L o2. WBC improving. Respiratory panel ordered with findings, procalcitonin is 0.23. For now will continue to monitor off antibiotics. Reports abdominal bloating today, last BM on 04/16. Has some nausea but no vomiting. He reports no difficulty breathing, reports no cough, rhinorrhea. Exam Vital Signs (past 8 hours): - 04/18/23 06:00 04/18/23 06:39 04/18/23 08:07 Temperature 100 F H 100 F H 99.1 F Pulse Rate 110 H Respiratory Rate 30 H Blood Pressure 119/57 L Pulse Oximetry 92 Oxygen Delivery Method Oxygen Flow Rate 3 04/18/23 10:16 Temperature Pulse Rate Respiratory Rate Blood Pressure Pulse Oximetry Oxygen Delivery Method Nasal Cannula Oxygen Flow Rate Oxygen Delivery Method Nasal Cannula Oxygen Flow Rate 3 Narrative Exam Narrative: Gen: No acute distress CV: RRR no m/r/g Pulm: bibasilar rhonchi Abd: soft, mild distension, non-tender Ext: No edema Objective Labs 04/18/23 09:50 04/18/23 09:50 Labs: Laboratory Results - last 24 hr 04/17/23 04/17/23 04/17/23 15:47 16:30 16:46 WBC 20.5 H RBC 4.43 L Hgb 14.4 Hct 42.1 MCV 95.1 MCH 32.5 MCHC 34.2 RDW 12.7 Plt Count 200 Neut % (Auto) 89.9 H Lymph % (Auto) 5.2 L Russell % (Auto) 4.7 Eos % (Auto) 0.1 L Baso % (Auto) 0.1 Neut # (Auto) 78744 H Lymph # (Auto) 1100 Russell # (Auto) 1000 H Eos # (Auto) 0 Baso # (Auto) 0 Sample Site A-line ABG pH 7.36 ABG pCO2 38.8 ABG pO2 137 H ABG HCO3 22 L ABG Total CO2 23 ABG O2 Saturation 99 ABG Base Excess -4.0 L FiO2 35 Sodium 135 L Potassium 4.1 Chloride 103 Carbon Dioxide 22 BUN 14 Creatinine 1.07 Estimated GFR > 60 BUN/Creatinine Ratio 13.1 Glucose 159 H Calcium 9.3 Phosphorus 3.3 Magnesium Total Bilirubin AST ALT Alkaline Phosphatase Total Protein Albumin 3.8 Globulin Albumin/Globulin Ratio Procalcitonin Nasal Screen MRSA (PCR) Not detected Chlamy pneumoniae PCR Adenovirus (PCR) B.parapertussis DNA PCR Coronavirus OC43 (PCR) Coronavirus HKU1 (PCR) Coronavirus 229E (PCR) SARS-CoV-2 (PCR) Coronavirus NL63 (PCR) Human Metapneumovir PCR Influenza Type A (PCR) Influenza Type B (PCR) M. pneumoniae (PCR) Parainfluenza 1 (PCR) Parainfluenza 2 (PCR) Parainfluenza 3 (PCR) Parainfluenza 4 (PCR) RSV (PCR) Entero/Rhino (PCR) 04/18/23 04/18/23 09:50 10:35 WBC 16.3 H RBC 4.28 L Hgb 13.7 Hct 40.4 L MCV 94.4 MCH 31.9 MCHC 33.8 RDW 13.0 Plt Count 209 Neut % (Auto) 85.1 H Lymph % (Auto) 5.6 L Russell % (Auto) 8.8 Eos % (Auto) 0.1 L Baso % (Auto) 0.4 Neut # (Auto) 36225 H Lymph # (Auto) 900 L Russell # (Auto) 1400 H Eos # (Auto) 0 Baso # (Auto) 100 Sample Site ABG pH ABG pCO2 ABG pO2 ABG HCO3 ABG Total CO2 ABG O2 Saturation ABG Base Excess FiO2 Sodium 133 L Potassium 3.8 Chloride 97 L Carbon Dioxide 27 BUN 11 Creatinine 0.97 Estimated GFR > 60 BUN/Creatinine Ratio 11.3 Glucose 149 H Calcium 9.3 Phosphorus Magnesium 1.8 Total Bilirubin 1.1 AST 85 H ALT 29 Alkaline Phosphatase 69 Total Protein 7.5 Albumin 4.0 Globulin 3.5 Albumin/Globulin Ratio 1.1 Procalcitonin 0.23 Nasal Screen MRSA (PCR) Chlamy pneumoniae PCR Not detected Adenovirus (PCR) Not detected B.parapertussis DNA PCR Not detected Coronavirus OC43 (PCR) Not detected Coronavirus HKU1 (PCR) Not detected Coronavirus 229E (PCR) Not detected SARS-CoV-2 (PCR) Not detected Coronavirus NL63 (PCR) Not detected Human Metapneumovir PCR Not detected Influenza Type A (PCR) Not detected Influenza Type B (PCR) Not detected M. pneumoniae (PCR) Not detected Parainfluenza 1 (PCR) Not detected Parainfluenza 2 (PCR) Not detected Parainfluenza 3 (PCR) Not detected Parainfluenza 4 (PCR) Not detected RSV (PCR) Not detected Entero/Rhino (PCR) Not detected PFSH Medical History (Updated 04/12/23 @ 12:48 by Johana Robles, RN) Oxygen dependent GERD (gastroesophageal reflux disease) Impaired renal function Numbness Vitamin D deficiency Plantar fasciitis Osteoarthritis Acute dermatitis BPH (benign prostatic hyperplasia) Low back pain Herpes simplex Diabetes Pulmonary fibrosis Chronic hypoxemic respiratory failure Critical illness polyneuropathy COVID-19 long hauler JUVENTINO on CPAP HLD (hyperlipidemia) HTN (hypertension) CVA (cerebral vascular accident) History of COVID-19 Surgical History (Updated 04/12/23 @ 10:02 by Johana Robles RN) Hx of tracheostomy (09/05/19) H/O vasectomy History of colonoscopy (01/10/12) Social History household members: spouse and children Smoking Status: Never smoker alcohol intake: current Assessment & Plan Assessment & Plan narrative: 62 yr old male with medical H/o of chronic resp failure on 2 L NC, pulmonary fibrosis 2/2 COVID pna 2019 requring chronic trach vent, H/o of HTN, GERD, CVA, JUVENTINO, BPH, her for/ s/p L3-4 Postero-lateral and posterior interbody fusion, pt was kept intubated post op, now extubated. 1. Acute on chronic hypoxemic respiratory failure - now extubated on 3L O2, baseline 2L. He has pulmonary fibrosis from COVID in 2020. - Leukocytosis could be in setting of stress response to surgery, improved today. Continue to observe without antibiotics. Respiratory panel negative. - wean O2 as tolerated, goal 89-96% while on supplemental therapy. - continue incentive spirometry - borderline fever to 100.3 post operatively, but no obvious signs of infection. 2.HTN - continue to hold home telmisartan for now, resume if hypertensive, he is normotensive today. 3. prior CVA - continue home aspirin when appropriate per primary service and statin 4. BPH - not currently on medications 5. S/p spinal surgery for spinal stenosis - management per primary service. 6. Hyponatremia - mild at 133, continue to monitor BMP daily, no current symptoms. Code: full, surrogate is patient's spouse DVT: per primary I have utilized all available immediate resources to obtain, update, or review the patient's current medications. Discussed above with orthpedics provider and ADVERTISING TRAFFIC MANAGER. Quality VTE Deep Vein Thrombosis/Pulmonary Embolism Present on Admission: No
[2023-04-18] MEDS: ONDANSETRON 4 MG ODT SL (14:31)
[2023-04-18] MEDS: polyethylene glycoL 3350 17 GM POWD.PACK PO (14:32)
--- NOTE | 2023-04-18 14:42 | PT.IPTN ---
Current Diagnoses Spondylosis without myelopathy or radiculopathy, lumbar region (04/17/23) Spinal stenosis, lumbar region with neurogenic claudication (04/17/23) Surgery Performed Operation Date: 04/17/23 10:45 Actual Procedures p L3-4 TLIF L4-5 left hemilaminectomy - Tha Spangler MD Physical Therapy Treatment Note M2 PT-IP Current Condition Start: 04/18/23 08:25 Freq: NEEDED Status: Active Protocol: Document 04/18/23 11:20 MB (Rec: 04/18/23 12:01 MB [id number]) Physical Therapy Current Condition Current Condition Evaluation Date 04/18/23 Treatment Diagnosis L3-4 posterior interbody fusion, L4-5 L hemilaminectomy M3 PT-IP Subjective Start: 04/18/23 08:25 Freq: NEEDED Status: Active Protocol: Document 04/18/23 15:16 TS (Rec: 04/18/23 15:25 TS [id number]) Subjective Physical Therapy Visit Type Type Treatment Note Visit Start Time 14:42 Visit Stop Time 15:14 Total Visit Minutes 32 Notes Spouse present Physical Therapy Visit Comments Patient Comments Pt found resting in chair, on 3L Spo2 97%, reports feeling nauseous, is agreeable to PT. M4 PT-IP Mobility and Gait Start: 04/18/23 08:25 Freq: NEEDED Status: Active Protocol: Document 04/18/23 15:16 TS (Rec: 04/18/23 15:25 TS [id number]) PT-Transfer Assessment Sit to and From Stand Sit to and from Stand Contact Guard Assistance,1 Person Assistance,Use of Upper Extremities Equipment Transfer Assistive Device Gait Belt,Front Wheeled Walker Orthotic/Prosthetic Devices or Brace: No Comments Mobility Comments Pt vomits prior to mobility, ~ 200ml, RN notified. He recalled 3/3 spinal precautions. Sit to stand with FWW CGA with BUE support pushing from arms of chair. He ambulated ~100'SBA with FWW, pt vomits again ~100ml, RN notified. Pt was left back in chair, all needs met. Gait Assessment Gait Gait Assistance Required: Standby Assistance Distance (Feet) 100 Able to Maintain Weight Bearing Status Yes During Gait Assistive Devices Assistive Device Gait Belt,Front Wheeled Walker Orthotic/Prosthetic Devices or Brace: No Gait Deviations General Gait Pattern Antalgic,Step-to Gait Factors Limiting Gait Function Factors Limiting Gait Function Decreased Activity Tolerance, Poor Balance,Poor Safety Awareness,Respiratory Distress Comments Gait Comments See mobility comments PT-Balance Assessment Sitting Balance and Reactions Static Sitting Balance Ability Good Dynamic Sitting Balance Ability Fair Standing Balance and Reactions Static Standing Balance Ability Fair Dynamic Standing Balance Ability Fair Device Used RW M5 PT-IP Objective Assessments Start: 04/18/23 08:25 Freq: NEEDED Status: Active Protocol: Document 04/18/23 11:20 MB (Rec: 04/18/23 12:01 MB [id number]) Orientation Orientation/Cognition Level of Alertness Alert Orientation Name,Age,Birthday,Month,Date, Year,Day of Week,Place, Situation Language Function Ability No Deficits Noted Safety Awareness Decreased Safety Awareness Memory Description Short Term Impaired,Retirement Impaired Gross Range of Motion Upper Extremity ROM Impairments Defer to OT Lower Extremity ROM Assessment Left Impaired Impairments LLE has decreased muscle mass compared to the right and pt states it is d/t polyneuropathy from when he had COVID in 2019 and was on the vent for 4 months Strength Lower Extremity Strength Assessment Left Impaired Comments Strength Comments Pt does not tolerate MMT today and his LLE appears to have less muscle mass than the right Sensation Assessment Comments Sensation Comments Polyneuropathy affecting LLE the most post-covide and intubated for 4 months in 2020 M6 PT-IP Treatment Start: 04/18/23 08:25 Freq: NEEDED Status: Active Protocol: Document 04/18/23 15:16 TS (Rec: 04/18/23 15:25 TS [id number]) Physical Therapy Treatment Education Education Provided Post-Op Packet,Safety M7 PT-IP Assessment and Plan Start: 04/18/23 08:25 Freq: NEEDED Status: Active Protocol: Document 04/18/23 15:16 TS (Rec: 04/18/23 15:25 TS [id number]) PT Summary Assessment and Plan Potential Rehabilitation Potential Fair Summary Impairments Pain,Balance,Bed Mobility, Transfers,Gait,Activity Tolerance Progress Towards Goals Progressing Toward Goals Assessment Summary Alo is progressing well with his mobility. He CGA for sit to stand from chair with use of FWW. He progressed his gait to ~100'SBA with use of FWW and on 3L of o2. Pt vomited x2, denied any SOB, RN was notified. PT is recommending pt return home with assist. Goals Bed Mobility Goal Independent Transfer Goal Independent,Front Wheeled Walker Gait Goal Independent,Front Wheel Walker Gait Distance 100 Other Goals Pt may progress to LRAD as appropriate. He has a 4WRW at home. Days to Meet Goals 5 Frequency of Treatment Frequency Of Treatment Twice a Day Treatment Plan Physical Therapy Treatment Plan Bed Mobility Training,Transfer Training,Gait Training, Therapeutic Exercise,Balance Retraining,Post Op Education, Discharge Planning, Neuromuscular Re-ed Precautions Lumbar Precautions Log Roll,No Twisting,Limit Bending,Lifting Restriction of 10 lbs,Gait Belt above Incisional Area Weight Bearing Status Weight Bearing Status Weight Bear as Tolerated Recommendations To Nursing Amount of Assist Needed 1 Person Assist Discharge Recommendations PT Discharge Recommendations Home with Assistance, Outpatient PT Transportation Needs at Discharge Private Vehicle
--- NOTE | 2023-04-18 15:14 | DI.RAD.S_ITS ---
PROCEDURE: XR ABDOMEN 1V INDICATIONS: n/v after spinal surgery TECHNIQUE: One view of the abdomen acquired. COMPARISON: None. FINDINGS: Surgical changes and devices: None. Bowel: Distended loops of large bowel. Soft tissues: No suspicious abdominal calcifications. Visualized solid organ contours appear normal in size. Bones: No suspicious bony lesions. Surgical fusion of the lower lumbar spine. IMPRESSION: Distended loops of large bowel, likely adynamic ileus. Dictated by: Tacho Beatty M.D. on 04/18/2023 at 15:40 Approved by: Tacho Beatty M.D. on 04/18/2023 at 15:41
--- NOTE | 2023-04-18 15:53 | CM.DANOTE ---
DCP Brief Assessment Note Patient is a 62yo M here following TLIF with Dr. Spangler on 04.17.23 PCP Chad Jarquin Payer prime and self pay BOX FINISHER reviewed EMR. Hospitalist involvement with brief intubatoin following surgery for restraints. BOX FINISHER unable to meet with pt today due to triaging needs. Per RN, pt moved to floor status, pt lives at home with supportive , and is overall doing well. Per PT/OT home with assistance. Per RN, dc tomorrow likely. No obvious CM needs identified at this time via chart review or nurse report. Plan: pt will likely dc home with family support tomorrow. No apparent CM needs at this time. CM team will continue to follow as needed. LISA Resendiz Discharge Planning/Care Management CM Discharge Assessment Start: 04/18/23 15:51 Freq: Status: Active Protocol: Document 04/18/23 15:51 SL (Rec: 04/18/23 15:52 [id number]) Discharge Planning Assessment Assigned Chain Person LISA Landon DPOA/Assigned Designee Name Betsy Hoyos (Spouse) Contact Information [phone] Advance Directives? No History Provided By Medical Record Prior Living Arrangements House Household Members spouse,children Discharge Plan Home Transportation Arrangement in POV Whiteboard Updated in Patient Room with No name and ext. # of Chain Person Review Status In Process Next Review Type Continued Stay Review Pre-Anesthesia Assessment Start: 04/12/23 09:43 Freq: Status: Complete Protocol: Document 04/12/23 09:43 CAB (Rec: 04/12/23 10:15 CAB [id number]) Pre-Anesthesia Assessment PAC Comment Please see anesthesia review regarding possible ICU admit post-op, possibly remaining intubated after procedure due to increased risk for pulmonary complications. Multiple records, pulmonary clearance in surgery folder for dos Patient Information Reviewed Via Phone Assessment Assessment Completed With Patient Primary Care Provider Khloe Jarquin Seen Specialist in Last 12 Months Yes Specialist Seen Industrial Court Magistrate,Orthopedist, Civil Drafter Primary Language Kinyarwanda Materials Coordinator Required No Height 168.91 cm Weight 88.451 kg Body Mass Index (BMI) 30.9 Hearing Ability Normal Visual Assist Magnifying Glass Dentition Type Teeth, Natural Present Barriers to Learning None Hx Anesthesia Reactions No Hx Family Anesthesia Reaction No Hx Malignant Hyperthermia No Hx Blood Transfusions No Anesthesia Review Requested Yes: Review completed prior to scheduling-scanned alcohol intake current alcohol intake frequency holidays/special occasions only Smoking Status Never smoker Substance Use Type does not use Pain Present Pain Reported Musculoskeletal Symptoms Back Pain,Numbness,Radiating Pain into Limb Comment Left foot drop, balance issue Patient is completely paralyzed or No completely immobile Mental Status Oriented to own ability Is patient on oxygen? Yes: 2L02 use with activity only per pt and with CPAP Does patient have RHODES/SOB Yes: RHODES Hx Sleep Apnea Yes CPAP/BIPAP use prescribed and used routinely Will Bring CPAP/BIPAP DOS Yes Currently Taking a Beta David No Hx Chest Pain No Hx SOB Yes Hx Syncope or Dizziness No Anti-Coagulant Therapy Yes: ASA 81mg daily -pt stopped 04/08/23 Has a Concrete Block Layer No Cardiac Testing No Hx Pacemaker/ICD No Pacemaker Rep Required? No Cardiac Clearance Received Not Applicable Diet Type At Home Regular Dysphagia No Gastrointestinal Symptoms Reflux Bladder Pattern Nocturia Urinary Catheter Present No Hx Urinary Self Catheterization No Diabetes Yes: No longer taking medication, checks blood sugar everyday HgbA1C 6.3 Date 04/06/23 Hx Drug Resistant Organism Yes: MSSA Presence of External or Internal Medical Yes: CPAP, Supplemental 02 Devices Have you had any close contact with Pt is Covtiffanie melendez someone diagnosed with COVID-19? Received a COVID vaccine? Yes Received all doses? Yes Marital Status Lives With spouse,children Current Living Arrangements House Number of Floors (Floors) One Floor Support System Child/Children,Spouse Does the Patient Have Assistance After Yes Surgery Patient Discharge Plan Description Return Home Comment Pt advised 1-2 day length of stay per surgeon Feels Safe in Current Environment Yes Been Physically Hurt or Threatened By a No Person in Current Environment Do you have thoughts of harming yourself None or others? Are you currently considering suicide? No Do you have a plan to hurt yourself or No Plan others? Do You Have Any Spiritual Beliefs That No May Affect Your HC Choices? Do You Have Any Cultural Practices That No May Affect Your HC Choices? Comment Shinto Who Can We Speak to About Patient's Care Family, friends Identifying Code for Release of Patient Declines to issue Information Health Care Proxy/Next of Kin Betsy Olivier () Health Care Proxy Emergency Contact Name Betsy Olivier () Emergency Contact Advance Directives? No Power of Construction Safety Consultant Yes Power of Construction Safety Consultant Name Betsy Olivier () Power of Construction Safety Consultant PAC Instructions Bring CPAP/BIPAP,Diabetes instructions,Durable medical equipment,Medications to take/ avoid,Nasal antibiotic,No ETOH /petroleum product on skin DOS ,NPO,Pre-surgical wash,Sensory aids,Sturdy shoes/comfortable clothes,Do not bring valuables and remove jewelry
[2023-04-18] MEDS: BISACODYL 10 MG SUPP PR (17:42)
--- NOTE | 2023-04-18 18:45 | PC.NURSE ---
Day Shift Note Patient up with PT today, 1 person assist. Sitting up in the chair majority of shift, reports oxycodone effective for pain control. On 3L NC with SpO2 93%. Encouraged to cough and deep breathe and to use IS. Eating without issue until this afternoon when pt reported nausea accompanied by a firm, distended abdomen, BTs hypoactive. Pt vomited 300 ml of emesis, zofran administered and pt reported feeling better. MD notified and KUB xray was done. Miralax administered to help with bowel motility, pt eating some bites of dinner, denies nausea. Pt to receive suppository this evening after dinner is complete. CMS is intact to BLEs except for pt's pre-existing numbness to left foot. Call light within reach, using appropriately to make needs known. is at bedside, supportive.
[2023-04-18] MEDS: ATORVASTATIN 20 MG TABLET 10 MG PO (20:42)
[2023-04-18] MEDS: SENNOSIDES 8.6 MG TABLET 17.2 MG PO (20:42)
[2023-04-18] MEDS: FAMOTIDINE 20 MG TABLET PO (20:42)
--- NOTE | 2023-04-18 20:55 | PC.NURSE ---
This RN administered bedtime meds to patient, about 10 minutes later patient vomited an unmeasured amount. Patient states he thinks his abdomen is just too full. Still waiting for a bowel movement from suppository.
[2023-04-19 05:04] LABS: Add Manual Diff / Slide Review NO; Basophils Absolute Auto 0 /uL (0-100); Basophils Percent Auto 0.2 % (0-2); Eosinophils Absolute Auto 0 /uL (0-450); Eosinophils Percent Auto 0.3 % (2-4); Hematocrit 37.2 % (41-53); Hemoglobin 12.9 g/dL (13.5-17.5); Lymphocytes Absolute Auto 1300 /uL (1100-4500); Mean Corpuscular HGB Conc 34.6 % (30-36); Mean Corpuscular Hemoglobin 32.7 PG (26-34); Mean Corpuscular Volume 94.6 fL (80-100); Monocytes Absolute Auto 1400 /uL (0-900); Monocytes Percent Auto 8.9 % (3-14); Neutrophils Absolute Auto 13000 /uL (1500-7000); Neutrophils Percent Auto 82.6 % (50-75); Platelet Count 205 X10^3/uL (150-400); Red Blood Cell Count 3.94 X10^6/uL (4.5-5.9); Red Cell Distribution Width 12.7 % (11.6-14.8); White Blood Cell Count 15.7 X10^3/uL (4.5-11.0)
[2023-04-19 05:10] LABS: Alanine Aminotransferase 24 IU/L (<50); Albumin 3.8 g/dL (3.5-5.0); Albumin Globulin Ratio 1.1 (1.0-2.8); Alkaline Phosphatase 66 U/L (38-126); Aspartate Aminotransferase 50 IU/L (17-59); BUN Creatinine Ratio 16.1 (6-22); Bilirubin Total 1.2 mg/dL (0.2-1.3); Blood Urea Nitrogen 15 mg/dL (9-20); Calcium 9.4 mg/dL (8.4-10.2); Carbon Dioxide 29 mmol/L (22-32); Chloride 100 mmol/L (98-107); Estimated Glomerular Filt Rate > 60 mL/min (>60); Globulin 3.5 g/dL (1.7-4.1); Glucose 133 mg/dL (80-110); HEMOLYSIS < 15 (0-50); Magnesium 2.1 mg/dL (1.6-2.3); Potassium 3.9 mmol/L (3.4-5.1); Sodium 134 mmol/L (137-145); Total Protein 7.3 g/dL (6.3-8.2)
[2023-04-19 07:27] VITALS: O2SAT 94
--- NOTE | 2023-04-19 07:58 | P.PN_ITS ---
Subjective Subjective Date Patient Seen: 04/19/23 Time Patient Seen: 07:59 Interval history: Patient is awakened with his . Says that his back pain comes and goes. At times he can radiate to 3/10. He has been working with physical therapy His primary complaint today is fullness sensation his abdomen with his inability to have a bowel movement. He is not had 1 since April 16. He is just started using suppositories yesterday. Exam Vital Signs (past 8 hours): - 04/19/23 07:27 Pulse Oximetry 94 Oxygen Delivery Method Nasal Cannula Oxygen Flow Rate 3 Oxygen Delivery Method Nasal Cannula Oxygen Flow Rate 3 Narrative Exam Narrative: Dressing has some bleeding through gauze but drainage is contained. Nontender to palpation. Able to dorsiflex and plantar flex at the left and right ankle against resistance. Sensation is grossly intact lower extremities. Abdomen is distended to palpation. Tenderness over the lower left quadrant. Resp Effort & Inspection: normal respiratory effort and able to speak in complete sentences Objective Labs 04/19/23 04:29 04/19/23 04:29 Labs: Laboratory Results - last 24 hr 04/18/23 04/18/23 04/19/23 09:50 10:35 04:29 WBC 16.3 H 15.7 H RBC 4.28 L 3.94 L Hgb 13.7 12.9 L Hct 40.4 L 37.2 L MCV 94.4 94.6 MCH 31.9 32.7 MCHC 33.8 34.6 RDW 13.0 12.7 Plt Count 209 205 Neut % (Auto) 85.1 H 82.6 H Lymph % (Auto) 5.6 L 8.0 L [place] % (Auto) 8.8 8.9 Eos % (Auto) 0.1 L 0.3 L Baso % (Auto) 0.4 0.2 Neut # (Auto) 82798 H 89872 H Lymph # (Auto) 900 L 1300 [place] # (Auto) 1400 H 1400 H Eos # (Auto) 0 0 Baso # (Auto) 100 0 Sodium 133 L 134 L Potassium 3.8 3.9 Chloride 97 L 100 Carbon Dioxide 27 29 BUN 11 15 Creatinine 0.97 0.93 Estimated GFR > 60 > 60 BUN/Creatinine Ratio 11.3 16.1 Glucose 149 H 133 H Calcium 9.3 9.4 Magnesium 1.8 2.1 Total Bilirubin 1.1 1.2 AST 85 H 50 ALT 29 24 Alkaline Phosphatase 69 66 Total Protein 7.5 7.3 Albumin 4.0 3.8 Globulin 3.5 3.5 Albumin/Globulin Ratio 1.1 1.1 Procalcitonin 0.23 Chlamy pneumoniae PCR Not detected Adenovirus (PCR) Not detected B.parapertussis DNA PCR Not detected Coronavirus OC43 (PCR) Not detected Coronavirus HKU1 (PCR) Not detected Coronavirus 229E (PCR) Not detected SARS-CoV-2 (PCR) Not detected Coronavirus NL63 (PCR) Not detected Human Metapneumovir PCR Not detected Influenza Type A (PCR) Not detected Influenza Type B (PCR) Not detected M. pneumoniae (PCR) Not detected Parainfluenza 1 (PCR) Not detected Parainfluenza 2 (PCR) Not detected Parainfluenza 3 (PCR) Not detected Parainfluenza 4 (PCR) Not detected RSV (PCR) Not detected Entero/Rhino (PCR) Not detected PFSH Medical History (Updated 04/12/23 @ 12:48 by Johana Robles RN) Oxygen dependent GERD (gastroesophageal reflux disease) Impaired renal function Numbness Vitamin D deficiency Plantar fasciitis Osteoarthritis Acute dermatitis BPH (benign prostatic hyperplasia) Low back pain Herpes simplex Diabetes Pulmonary fibrosis Chronic hypoxemic respiratory failure Critical illness polyneuropathy COVID-19 long hauler JUVENTINO on CPAP HLD (hyperlipidemia) HTN (hypertension) CVA (cerebral vascular accident) History of COVID-19 Surgical History (Updated 04/12/23 @ 10:02 by Johana Robles RN) Hx of tracheostomy (09/05/19) H/O vasectomy History of colonoscopy (01/10/12) Social History household members: spouse and children Smoking Status: Never smoker alcohol intake: current Assessment & Plan Post-op Postoperative Procedures: Procedures Operation Date: 04/17/23 10:45 Actual Procedure Side Surgeon p L3-4 TLIF L4-5 left hemilaminectomy Tha Spangler MD Postoperative day: 2 Postoperative status: post-op ileus Postoperative status narrative: Appears the patient has developed postoperative ileus. Postoperative plan: routine post-op care Postoperative plan narrative: Continue to use stool softeners to promote bowel movement. Continue with multimodal pain relief. Continue with physical therapy. hospitalist on consult. Time Spent With Patient Time with patient: less than 15 minutes Quality VTE Deep Vein Thrombosis/Pulmonary Embolism Present on Admission: No
[2023-04-19] MEDS: ACETAMINOPHEN 325 MG TABLET 650 MG PO (08:02)
[2023-04-19] MEDS: polyethylene glycoL 3350 17 GM POWD.PACK PO (08:02)
[2023-04-19] MEDS: OXYCODONE IR 10 MG TABLET PO ×2 (08:03→14:26)
[2023-04-19] MEDS: DOCUSATE 100 MG CAPSULE PO ×2 (08:03→21:24)
[2023-04-19 08:20] VITALS: BP 115/63; PULSE 78; RESP 16; O2SAT 93
--- NOTE | 2023-04-19 08:40 | PT.IPTN ---
Current Diagnoses Spondylosis without myelopathy or radiculopathy, lumbar region (04/17/23) Spinal stenosis, lumbar region with neurogenic claudication (04/17/23) Surgery Performed Operation Date: 04/17/23 10:45 Actual Procedures p L3-4 TLIF L4-5 left hemilaminectomy - Tha Spangler MD Physical Therapy Treatment Note M2 PT-IP Current Condition Start: 04/18/23 08:25 Freq: NEEDED Status: Active Protocol: Document 04/18/23 11:20 MB (Rec: 04/18/23 12:01 MB [id number]) Physical Therapy Current Condition Current Condition Evaluation Date 04/18/23 Treatment Diagnosis L3-4 posterior interbody fusion, L4-5 L hemilaminectomy M3 PT-IP Subjective Start: 04/18/23 08:25 Freq: NEEDED Status: Active Protocol: Document 04/19/23 09:09 TS (Rec: 04/19/23 09:20 TS [id number]) Subjective Physical Therapy Visit Type Type Treatment Note Visit Start Time 08:40 Visit Stop Time 09:05 Total Visit Minutes 25 Notes Spouse present Physical Therapy Visit Comments Patient Comments Pt found resting on 3L Spo2 97 %, is agreeable to PT. Therapy Pain Assessment Pain When Pain Assessed During Mobility Pain Present Pain Present Pain Reported Location Back Intensity 3 Scale Used Numeric (0 - 10) M4 PT-IP Mobility and Gait Start: 04/18/23 08:25 Freq: NEEDED Status: Active Protocol: Document 04/19/23 09:09 TS (Rec: 04/19/23 09:20 TS [id number]) PT-Transfer Assessment Sit to and From Stand Sit to and from Stand Contact Guard Assistance,1 Person Assistance,Use of Upper Extremities Equipment Transfer Assistive Device Gait Belt,Front Wheeled Walker Orthotic/Prosthetic Devices or Brace: No Comments Mobility Comments Pt placed on portable o2 at 3L prior to mobility. Sit to stand from chair CGA with use of FWW, pt stands with back is slight ext. He ambulated ~ 200' on 3L of o2, Spo2 95%. He ambulated another ~100' on 2L of Spo2 91-93%, pt denied any SOb, cued for breathing through NC. Pt was left back in room, all needs met, nursing notified. Gait Assessment Gait Gait Assistance Required: Standby Assistance Distance (Feet) 300 Able to Maintain Weight Bearing Status Yes During Gait Assistive Devices Assistive Device Gait Belt,Front Wheeled Walker Orthotic/Prosthetic Devices or Brace: No Gait Deviations General Gait Pattern Antalgic,Step-to Gait Factors Limiting Gait Function Factors Limiting Gait Function Decreased Activity Tolerance, Poor Balance,Poor Safety Awareness,Respiratory Distress Comments Gait Comments See mobility comments PT-Balance Assessment Sitting Balance and Reactions Static Sitting Balance Ability Good Dynamic Sitting Balance Ability Fair Standing Balance and Reactions Static Standing Balance Ability Good Dynamic Standing Balance Ability Fair Device Used RW M5 PT-IP Objective Assessments Start: 04/18/23 08:25 Freq: NEEDED Status: Active Protocol: Document 04/18/23 11:20 MB (Rec: 04/18/23 12:01 MB [id number]) Orientation Orientation/Cognition Level of Alertness Alert Orientation Name,Age,Birthday,Month,Date, Year,Day of Week,Place, Situation Language Function Ability No Deficits Noted Safety Awareness Decreased Safety Awareness Memory Description Short Term Impaired,Legal Records Clerk Impaired Gross Range of Motion Upper Extremity ROM Impairments Defer to OT Lower Extremity ROM Assessment Left Impaired Impairments LLE has decreased muscle mass compared to the right and pt states it is d/t polyneuropathy from when he had COVID in 2019 and was on the vent for 4 months Strength Lower Extremity Strength Assessment Left Impaired Comments Strength Comments Pt does not tolerate MMT today and his LLE appears to have less muscle mass than the right Sensation Assessment Comments Sensation Comments Polyneuropathy affecting LLE the most post-covide and intubated for 4 months in 2020 M6 PT-IP Treatment Start: 04/18/23 08:25 Freq: NEEDED Status: Active Protocol: Document 04/19/23 09:09 TS (Rec: 04/19/23 09:20 TS [id number]) Physical Therapy Treatment Education Education Provided Post-Op Packet,Safety M7 PT-IP Assessment and Plan Start: 04/18/23 08:25 Freq: NEEDED Status: Active Protocol: Document 04/19/23 09:09 TS (Rec: 04/19/23 09:20 TS [id number]) PT Summary Assessment and Plan Potential Rehabilitation Potential Fair Summary Impairments Pain,Balance,Bed Mobility, Transfers,Gait,Activity Tolerance Progress Towards Goals Progressing Toward Goals Assessment Summary Alo continues to progress with his mobility. He is CGA for sit to stand with back slightly ext coming into standing. He ambulated ~200' SBA with FWW on 3, Spo2 95%, another ~100' on 2L, Spo2 91- 93%. PT continues to recommend return home with assist from spouse. Goals Bed Mobility Goal Independent Transfer Goal Independent,Front Wheeled Walker Gait Goal Independent,Front Wheel Walker Gait Distance 100 Other Goals Pt may progress to LRAD as appropriate. He has a 4WRW at home. Days to Meet Goals 5 Frequency of Treatment Frequency Of Treatment Twice a Day Treatment Plan Physical Therapy Treatment Plan Bed Mobility Training,Transfer Training,Gait Training, Therapeutic Exercise,Balance Retraining,Post Op Education, Discharge Planning, Neuromuscular Re-ed Precautions Lumbar Precautions Log Roll,No Twisting,Limit Bending,Lifting Restriction of 10 lbs,Gait Belt above Incisional Area Weight Bearing Status Weight Bearing Status Weight Bear as Tolerated Recommendations To Nursing Amount of Assist Needed 1 Person Assist Discharge Recommendations PT Discharge Recommendations Home with Assistance, Outpatient PT Transportation Needs at Discharge Private Vehicle
[2023-04-19 09:12] VITALS: TEMP 37.4
--- NOTE | 2023-04-19 11:54 | OT.IP.TRT ---
Current Diagnoses Spondylosis without myelopathy or radiculopathy, lumbar region (04/17/23) Spinal stenosis, lumbar region with neurogenic claudication (04/17/23) Surgery Performed Operation Date: 04/17/23 10:45 Actual Procedures p L3-4 TLIF L4-5 left hemilaminectomy - Tha Spangler MD Occupational Therapy Treatment Note M2 OT-IP Current Condition Start: 04/18/23 11:49 Freq: Status: Active Protocol: Document 04/18/23 11:50 [facility] (Rec: 04/18/23 12:08 [facility] [id number]) Occupational Therapy Current Condition Current Condition Evaluation Date 04/18/23 Treatment Diagnosis S/P L3-4 TLIF, L4-5 left hemilaminectomy, acute on chronic hypoxemic Diagnosis Onset Date 04/17/23 M3 OT- IP Subjective and Pain Start: 04/18/23 11:49 Freq: Status: Active Protocol: Document 04/19/23 12:03 [facility] (Rec: 04/19/23 12:16 [facility] [id number]) OT- Subjective Occupational Therapy Visit Type Type Treatment Note Visit Start Time 11:35 Visit Stop Time 11:54 Total Visit Minutes 19 Occupational Therapy Visit Comments Patient Comments Pt too tired to shower but agreed to stand up to simulate if able to wipe after a bowel movement. Patient/Caregiver Goals To go home. OT Pain Assessment Pain When Pain Assessed At Rest Pain Present Pain Present Denied Pain M4 OT- IP ADL's Start: 04/18/23 11:49 Freq: Status: Active Protocol: Document 04/19/23 12:03 [facility] (Rec: 04/19/23 12:16 [facility] [id number]) OT [id number] General Evaluation Self-Feeding Ability Independent OT ADL-Grooming General Evaluation Grooming Ability Independent OT ADL-Oral Care Comments Oral Care Comments Re- educated pt to to spit into a cup or hinge at his hips to best follow his back precautions. OT ADL-Dressing Comments OT Dressing Comments Able to re-show pt use of LB dressing equipment. Pt states to have his help or just get a thinner sprayer. Pt already has a sock aid. OT ADL-Toileting Comments OT Toileting Comments Not performed. OT ADL-Bathing Comments OT Bathing Comments Pt too tired to shower at this time. M5 OT- IP IADL's Start: 04/18/23 11:49 Freq: Status: Active Protocol: Document 04/18/23 11:50 [facility] (Rec: 04/18/23 12:08 [facility] [id number]) OT-Instrumental Activities of Daily Living Deficits IADL Deficits Identified Deficits Home Safety Awareness Home Safety Comments Pt has a supportive to assist with his needs. Meal Preparation Meal Preparation Caregiver Provides Assist Circulating Nurse Circulating Nurse Caregiver Provides Assist M6 OT- IP Functional Cognition Start: 04/18/23 11:49 Freq: Status: Active Protocol: Document 04/19/23 12:03 [facility] (Rec: 04/19/23 12:16 [facility] [id number]) Cognitive Factors Limiting Selfcare Function Cognitive Ability Level of Alertness Alert Patient Orientation Name,Age,Birthday,Month,Date, Year,Day of Week,Place, Situation Attention Span Ability Capable of Focused Attention, Capable of Sustained Attention Ability to Follow Commands Able to Follow Multi-Step Commands M7 OT- IP Mobility and Balance Start: 04/18/23 11:49 Freq: Status: Active Protocol: Document 04/19/23 12:03 [facility] (Rec: 04/19/23 12:16 [facility] [id number]) OT-Transfer Assessment Sit to and From Stand Sit to and from Stand Standby Assistance Comments Mobility Comments Pt able to stand to the FWW with SBA. OT- Balance Assessment Sitting Balance and Reactions Static Sitting Balance Ability Good Dynamic Sitting Balance Ability Good Standing Balance and Reactions Static Standing Balance Ability Good Dynamic Standing Balance Ability Fair M9 OT- IP Assessment and Plan Start: 04/18/23 11:49 Freq: Status: Active Protocol: Document 04/19/23 12:03 [facility] (Rec: 04/19/23 12:16 [facility] [id number]) OT Summary Assessment and Plan Potential Rehabilitation Potential Good Analytic Complexity at Evaluation High Summary OT Impairments Strength,Balance,Functional Mobility,Grooming,Dressing, Toileting,Bathing,Toilet Transfers,Shower Transfers, Activity Tolerance Progress Towards Goals Progressing Toward Goals Assessment Summary Pt doing well and moving much better. Pt' has good understanding for all ADL needs and equipment needs. Pt to be discharged from OT services , nursing aware. PT to continue to work with the pt and try the 4ww with the pt . Discharge Recommendations OT Discharge Recommendations Home with Assistance Home Equipment Needs shower chair, hand held shower spray, thinner sprayer Transportation Needs at Discharge Private Vehicle
--- NOTE | 2023-04-19 12:55 | P.PN_ITS ---
Subjective Subjective Interval history: His back pain is better. He feels less bloated. He is passing gas. No bowel movement yet. No nausea, vomiting. He was out of bed walking around earlier. Exam Vital Signs (past 8 hours): - 04/19/23 07:27 04/19/23 08:20 04/19/23 08:20 Temperature Pulse Rate 78 Respiratory Rate 16 Blood Pressure 115/63 Pulse Oximetry 94 93 Oxygen Delivery Method Nasal Cannula Nasal Cannula Oxygen Flow Rate 3 3 04/19/23 09:12 Temperature 99.3 F Pulse Rate Respiratory Rate Blood Pressure Pulse Oximetry Oxygen Delivery Method Oxygen Flow Rate Oxygen Delivery Method Nasal Cannula Oxygen Flow Rate 3 Narrative Exam Narrative: Gen: No acute distress CV: regular rate and rhythm Pulm: clear bilaterally Abd: soft, mild distension, non-tender Ext: No edema Objective Labs 04/19/23 04:29 04/19/23 04:29 Labs: Laboratory Results - last 24 hr 04/19/23 04:29 WBC 15.7 H RBC 3.94 L Hgb 12.9 L Hct 37.2 L MCV 94.6 MCH 32.7 MCHC 34.6 RDW 12.7 Plt Count 205 Neut % (Auto) 82.6 H Lymph % (Auto) 8.0 L [place] % (Auto) 8.9 Eos % (Auto) 0.3 L Baso % (Auto) 0.2 Neut # (Auto) 85941 H Lymph # (Auto) 1300 [place] # (Auto) 1400 H Eos # (Auto) 0 Baso # (Auto) 0 Sodium 134 L Potassium 3.9 Chloride 100 Carbon Dioxide 29 BUN 15 Creatinine 0.93 Estimated GFR > 60 BUN/Creatinine Ratio 16.1 Glucose 133 H Calcium 9.4 Magnesium 2.1 Total Bilirubin 1.2 AST 50 ALT 24 Alkaline Phosphatase 66 Total Protein 7.3 Albumin 3.8 Globulin 3.5 Albumin/Globulin Ratio 1.1 PFSH Medical History (Updated 04/12/23 @ 12:48 by Johana Robles RN) Oxygen dependent GERD (gastroesophageal reflux disease) Impaired renal function Numbness Vitamin D deficiency Plantar fasciitis Osteoarthritis Acute dermatitis BPH (benign prostatic hyperplasia) Low back pain Herpes simplex Diabetes Pulmonary fibrosis Chronic hypoxemic respiratory failure Critical illness polyneuropathy COVID-19 long hauler JUVENTINO on CPAP HLD (hyperlipidemia) HTN (hypertension) CVA (cerebral vascular accident) History of COVID-19 Surgical History (Updated 04/12/23 @ 10:02 by Johana Robles RN) Hx of tracheostomy (09/05/19) H/O vasectomy History of colonoscopy (01/10/12) Social History household members: spouse and children Smoking Status: Never smoker alcohol intake: current Assessment & Plan Assessment & Plan narrative: 1. Acute on chronic hypoxemic respiratory failure - now extubated on 3L O2, baseline 2L. He has pulmonary fibrosis from COVID in 2020. - Leukocytosis could be in setting of stress response to surgery, continues to improve. Continue to observe without antibiotics. Respiratory panel negative. Procal low. - wean O2 as tolerated, goal 89-96% while on supplemental therapy. - continue incentive spirometry - borderline fever to 100.3 post operatively, but otherwise no signs of infection 2.HTN - continue to hold home telmisartan for now, resume if hypertensive, he is normotensive today. 3. prior CVA - continue home aspirin when appropriate per primary service and statin 4. BPH - not currently on medications 5. S/p spinal surgery for spinal stenosis - management per primary service. 6. Hyponatremia - mild at 133, continue to monitor BMP daily, no current symptoms. 7. Probable post-operative ileus -feels mildly better, no bowel movement -continue bowel regimem Quality VTE Deep Vein Thrombosis/Pulmonary Embolism Present on Admission: No
--- NOTE | 2023-04-19 13:10 | PT.IPTN ---
Current Diagnoses Spondylosis without myelopathy or radiculopathy, lumbar region (04/17/23) Spinal stenosis, lumbar region with neurogenic claudication (04/17/23) Surgery Performed Operation Date: 04/17/23 10:45 Actual Procedures p L3-4 TLIF L4-5 left hemilaminectomy - Tha Spangler MD Physical Therapy Treatment Note M2 PT-IP Current Condition Start: 04/18/23 08:25 Freq: NEEDED Status: Active Protocol: Document 04/18/23 11:20 MB (Rec: 04/18/23 12:01 MB [id number]) Physical Therapy Current Condition Current Condition Evaluation Date 04/18/23 Treatment Diagnosis L3-4 posterior interbody fusion, L4-5 L hemilaminectomy M3 PT-IP Subjective Start: 04/18/23 08:25 Freq: NEEDED Status: Active Protocol: Document 04/19/23 13:51 TS (Rec: 04/19/23 14:09 TS [id number]) Subjective Physical Therapy Visit Type Type Treatment Note Visit Start Time 13:10 Visit Stop Time 13:34 Total Visit Minutes 24 Number of DISPATCHER CHIEF OIL Visits 3 Physical Therapy Visit Comments Patient Comments Pt found resting in bed, continues to be on 3L of o2, pt is agreeable to PT. Therapy Pain Assessment Pain When Pain Assessed During Mobility Pain Present Pain Present Pain Reported M4 PT-IP Mobility and Gait Start: 04/18/23 08:25 Freq: NEEDED Status: Active Protocol: Document 04/19/23 13:51 TS (Rec: 04/19/23 14:09 TS [id number]) PT-Transfer Assessment Sit to and From Stand Sit to and from Stand Standby Assistance,Use of Upper Extremities Equipment Transfer Assistive Device Gait Belt,4 Wheeled Walker Orthotic/Prosthetic Devices or Brace: No Comments Mobility Comments Sit to stand with 4WW SBA, pt cued for brakes. He ambulated ~250' with 4WW, Spo2 on 3L remained in low to mid 90's throughout session. Pt ambulated ~50' with SPC CGA, pt is unsteady and reports increased pain, pt educated on the benefits of continued use of 4WW, pt agreed. Pt was left back in bed, all needs met. Gait Assessment Gait Gait Assistance Required: Standby Assistance,Contact Guard Assist Distance (Feet) 300 Able to Maintain Weight Bearing Status Yes During Gait Assistive Devices Assistive Device Gait Belt,Straight Cane,4 Wheeled Walker Orthotic/Prosthetic Devices or Brace: No Gait Deviations General Gait Pattern Antalgic,Step-to Gait Factors Limiting Gait Function Factors Limiting Gait Function Decreased Activity Tolerance, Poor Balance,Poor Safety Awareness,Respiratory Distress Comments Gait Comments See mobility comments PT-Balance Assessment Sitting Balance and Reactions Static Sitting Balance Ability Good Dynamic Sitting Balance Ability Good Standing Balance and Reactions Static Standing Balance Ability Good Dynamic Standing Balance Ability Fair Device Used RW M5 PT-IP Objective Assessments Start: 04/18/23 08:25 Freq: NEEDED Status: Active Protocol: Document 04/18/23 11:20 MB (Rec: 04/18/23 12:01 MB [id number]) Orientation Orientation/Cognition Level of Alertness Alert Orientation Name,Age,Birthday,Month,Date, Year,Day of Week,Place, Situation Language Function Ability No Deficits Noted Safety Awareness Decreased Safety Awareness Memory Description Short Term Impaired,Alf Impaired Gross Range of Motion Upper Extremity ROM Impairments Defer to OT Lower Extremity ROM Assessment Left Impaired Impairments LLE has decreased muscle mass compared to the right and pt states it is d/t polyneuropathy from when he had COVID in 2019 and was on the vent for 4 months Strength Lower Extremity Strength Assessment Left Impaired Comments Strength Comments Pt does not tolerate MMT today and his LLE appears to have less muscle mass than the right Sensation Assessment Comments Sensation Comments Polyneuropathy affecting LLE the most post-covide and intubated for 4 months in 2020 M6 PT-IP Treatment Start: 04/18/23 08:25 Freq: NEEDED Status: Active Protocol: Document 04/19/23 13:51 TS (Rec: 04/19/23 14:09 TS [id number]) Physical Therapy Treatment Education Education Provided Post-Op Packet,Safety M7 PT-IP Assessment and Plan Start: 04/18/23 08:25 Freq: NEEDED Status: Active Protocol: Document 04/19/23 13:51 TS (Rec: 04/19/23 14:09 TS [id number]) PT Summary Assessment and Plan Potential Rehabilitation Potential Fair Summary Impairments Pain,Balance,Bed Mobility, Transfers,Gait,Activity Tolerance Progress Towards Goals Progressing Toward Goals Assessment Summary Alo continues to do well with his mobility. He is SBA for sit to stand with 4WW. He ambulated ~250' with 4WW SBA, Spo2 remained in low to mid 90 's throughout session. Pt requested to trial cane for gait, ~50' with SPC, pt reported increased pain and is slightly unsteady. He was educated on the benefits of continuing to use 4WW, pt agreed. PT is recommending home with assist from spouse. Goals Bed Mobility Goal Independent Transfer Goal Independent,Front Wheeled Walker Gait Goal Independent,Front Wheel Walker Gait Distance 100 Other Goals Pt may progress to LRAD as appropriate. He has a 4WRW at home. Days to Meet Goals 5 Frequency of Treatment Frequency Of Treatment Twice a Day Treatment Plan Physical Therapy Treatment Plan Bed Mobility Training,Transfer Training,Gait Training, Therapeutic Exercise,Balance Retraining,Post Op Education, Discharge Planning, Neuromuscular Re-ed Precautions Lumbar Precautions Log Roll,No Twisting,Limit Bending,Lifting Restriction of 10 lbs,Gait Belt above Incisional Area Weight Bearing Status Weight Bearing Status Weight Bear as Tolerated Recommendations To Nursing Amount of Assist Needed 1 Person Assist Discharge Recommendations PT Discharge Recommendations Home with Assistance, Outpatient PT Transportation Needs at Discharge Private Vehicle
--- NOTE | 2023-04-19 14:24 | P.PN_ITS ---
Subjective Subjective Date Patient Seen: 04/19/23 Time Patient Seen: 14:24 Interval history: Pt sitting up comfortably in chair, spouse at side. Is avoiding narcotic pain medication. Has not moved bowels, but denies need for enema at this time. Denies nausea, passing flatus. Much less abdominal pain today. Able to ambulate without difficulty using walker, c/o low back pain w/ cane. Also c/o BLE numbness and tingling, which he states is unchanged since surgery. Exam Vital Signs (past 8 hours): - 04/19/23 07:27 04/19/23 08:20 04/19/23 08:20 Temperature Pulse Rate 78 Respiratory Rate 16 Blood Pressure 115/63 Pulse Oximetry 94 93 Oxygen Delivery Method Nasal Cannula Nasal Cannula Oxygen Flow Rate 3 3 04/19/23 09:12 Temperature 99.3 F Pulse Rate Respiratory Rate Blood Pressure Pulse Oximetry Oxygen Delivery Method Oxygen Flow Rate Oxygen Delivery Method Nasal Cannula Oxygen Flow Rate 3 Narrative Exam Narrative: 5/5 strength in hip flexors, quadriceps, hamstrings, DF, PF, EHL bilaterally. Sensation to light touch intact in BLE. Calves soft and compressible. Dressing placed intraoperatively w/ moderate amount of old drainage on the right, otherwise intact. Objective Labs 04/19/23 04:29 04/19/23 04:29 Labs: Laboratory Results - last 24 hr 04/19/23 04:29 WBC 15.7 H RBC 3.94 L Hgb 12.9 L Hct 37.2 L MCV 94.6 MCH 32.7 MCHC 34.6 RDW 12.7 Plt Count 205 Neut % (Auto) 82.6 H Lymph % (Auto) 8.0 L [place] % (Auto) 8.9 Eos % (Auto) 0.3 L Baso % (Auto) 0.2 Neut # (Auto) 89258 H Lymph # (Auto) 1300 [place] # (Auto) 1400 H Eos # (Auto) 0 Baso # (Auto) 0 Sodium 134 L Potassium 3.9 Chloride 100 Carbon Dioxide 29 BUN 15 Creatinine 0.93 Estimated GFR > 60 BUN/Creatinine Ratio 16.1 Glucose 133 H Calcium 9.4 Magnesium 2.1 Total Bilirubin 1.2 AST 50 ALT 24 Alkaline Phosphatase 66 Total Protein 7.3 Albumin 3.8 Globulin 3.5 Albumin/Globulin Ratio 1.1 REPLACED BY [facility] Medical History (Updated 04/19/23 @ 14:27 by Harika Porter PA-C) Oxygen dependent GERD (gastroesophageal reflux disease) Impaired renal function Numbness Vitamin D deficiency Plantar fasciitis Osteoarthritis Acute dermatitis BPH (benign prostatic hyperplasia) Low back pain Herpes simplex Diabetes Pulmonary fibrosis Chronic hypoxemic respiratory failure Critical illness polyneuropathy COVID-19 long hauler JUVENTINO on CPAP HLD (hyperlipidemia) HTN (hypertension) CVA (cerebral vascular accident) History of COVID-19 Surgical History (Updated 04/19/23 @ 14:27 by Harika Porter PA-C) Hx of tracheostomy (09/05/19) H/O vasectomy History of colonoscopy (01/10/12) Social History household members: spouse and children Smoking Status: Never smoker alcohol intake: current Assessment & Plan Post-op Assessment and plan (1) S/P lumbar fusion: Assessment and Plan narrative: D/w pt that use of a walker at this time is appropriate; use of a cane so shortly after surgery may be optimistic. PT has been evaluating since surgery, feel that he is safe/appropriate for discharge home. Pt and spouse feel comfortable discharging home tomorrow as long as he has a bowel movement today or tomorrow morning; will review bowel regimen and order enema for tomorrow morning if needed. Will send rxs including colace to pharmacy today; encouraged pt to sweet pickle maker Miralax as well. Increase fluid intake, avoid narcotic use. (2) Oxygen dependent: Assessment and Plan narrative: Per hospitalist, goal is to maintain O2 sats at 89-96% on 2L O2, which is his baseline at home. D/w Dr Dinero, who feels he is appropriate for discharge once this benchmark is met. Postoperative Procedures: Procedures Operation Date: 04/17/23 10:45 Actual Procedure Side Surgeon p L3-4 TLIF L4-5 left hemilaminectomy Tha Spangler MD Postoperative day: 2 Quality VTE Deep Vein Thrombosis/Pulmonary Embolism Present on Admission: No
[2023-04-19] MEDS: ASPIRIN EC 81 MG TABLET PO (14:26)
[2023-04-19] MEDS: MAGNESIUM HYDROXIDE 30 ML UDC PO (14:26)
--- NOTE | 2023-04-19 15:02 | PC.NURSE ---
Addendum entered by Clair Stewart R.N. 04/19/23 19:04: Dressing to back changed per provider order. Incisions well approximated, blayne intact, no bleeding or erythema. Original Note: Day Shift Note Alert and oriented x3. Pt is very motivated with supportive at bedside. Abdomen remains distended but less so than yesterday, BTs hypoactive, and pt reports passing flatus. Still no BM at this time. Eating some bites of meals and drinking fluids, receiving scheduled and prn bowel meds. Walking in room and in halls with PT and nursing staff. On 3L NC with SpO2 low 90s, will attempt to wean down to baseline 2L. Reports pain controlled with oxycodone. Call light within reach, using appropriately to make needs known.
--- NOTE | 2023-04-19 16:35 | CM.DPNOTE ---
DCP Note CASHIER WRAPPER reviewed EMR. Per RN, pt continues to need to have a BM prior to returning home. Per RN, mobility katz pt is doing laps around the hospital and is doing well. CASHIER WRAPPER unable to meet with pt today due to triaging needs. Plan: pt will dc home with spouse support when medically stable. No CM needs identified. CM team will follow as needed. LISA Resendiz
--- NOTE | 2023-04-19 18:04 | PM.PN.1 ---
Exam Vital Signs (past 8 hours): Oxygen Delivery Method Nasal Cannula Oxygen Flow Rate 3 Objective Labs 04/19/23 04:29 04/19/23 04:29 Labs: Laboratory Results - last 24 hr 04/19/23 04:29 WBC 15.7 H RBC 3.94 L Hgb 12.9 L Hct 37.2 L MCV 94.6 MCH 32.7 MCHC 34.6 RDW 12.7 Plt Count 205 Neut % (Auto) 82.6 H Lymph % (Auto) 8.0 L [place] % (Auto) 8.9 Eos % (Auto) 0.3 L Baso % (Auto) 0.2 Neut # (Auto) 30455 H Lymph # (Auto) 1300 [place] # (Auto) 1400 H Eos # (Auto) 0 Baso # (Auto) 0 Sodium 134 L Potassium 3.9 Chloride 100 Carbon Dioxide 29 BUN 15 Creatinine 0.93 Estimated GFR > 60 BUN/Creatinine Ratio 16.1 Glucose 133 H Calcium 9.4 Magnesium 2.1 Total Bilirubin 1.2 AST 50 ALT 24 Alkaline Phosphatase 66 Total Protein 7.3 Albumin 3.8 Globulin 3.5 Albumin/Globulin Ratio 1.1 PFSH Medical History (Updated 04/19/23 @ 14:27 by Harika Porter PA-C) Oxygen dependent GERD (gastroesophageal reflux disease) Impaired renal function Numbness Vitamin D deficiency Plantar fasciitis Osteoarthritis Acute dermatitis BPH (benign prostatic hyperplasia) Low back pain Herpes simplex Diabetes Pulmonary fibrosis Chronic hypoxemic respiratory failure Critical illness polyneuropathy COVID-19 long hauler JUVENTINO on CPAP HLD (hyperlipidemia) HTN (hypertension) CVA (cerebral vascular accident) History of COVID-19 Surgical History (Updated 04/19/23 @ 14:27 by Harika Porter PA-C) Hx of tracheostomy (09/05/19) H/O vasectomy History of colonoscopy (01/10/12) Social History household members: spouse and children Smoking Status: Never smoker alcohol intake: current Assessment & Plan Assessment & Plan narrative: Patient is POD#2 s/p L3-4 TLIF. He is doing well and happy with his progress so far. He was kept on mechanical ventilation overnight due to his poor respiratory reserve and was admitted to ICU for this reason. He was successfully extubed POD#1. He had distended abdomen yesterday and emesis with oral intake. Per nursing staff, his abdominal exam was + to percussions indicating gas filled GI tract. His abdomen is soft and non-distended today. Soft to touch and negative to percussion. Patient also states he has been passing gas all day, so much. He is neuro intact on exam and his dressing is clean and dry w/o evidence of active bleeding. He is progressing well with PT and cleared for D/c. I recommend discharge tomorrow once medically optimized per our medicine service. Quality VTE Deep Vein Thrombosis/Pulmonary Embolism Present on Admission: No
[2023-04-19 20:00] VITALS: BP 108/64; PULSE 87; RESP 18; TEMP 36.9; O2SAT 94
[2023-04-19] MEDS: ATORVASTATIN 20 MG TABLET 10 MG PO (21:23)
[2023-04-19] MEDS: FAMOTIDINE 20 MG TABLET PO (21:24)
[2023-04-19] MEDS: SENNOSIDES 8.6 MG TABLET 17.2 MG PO (21:24)
[2023-04-20] MEDS: OXYCODONE IR 5 MG TABLET PO ×2 (00:20→08:05)
[2023-04-20] MEDS: HYDROMORPHONE 0.5 MG INJ IV (01:48)
[2023-04-20 03:45] LABS: Add Manual Diff / Slide Review NO; Basophils Absolute Auto 100 /uL (0-100); Basophils Percent Auto 0.4 % (0-2); Eosinophils Absolute Auto 100 /uL (0-450); Eosinophils Percent Auto 0.7 % (2-4); Hematocrit 37.7 % (41-53); Hemoglobin 12.8 g/dL (13.5-17.5); Lymphocytes Absolute Auto 1300 /uL (1100-4500); Lymphocytes Percent Auto 8.8 % (25-40); Mean Corpuscular Volume 94.3 fL (80-100); Monocytes Absolute Auto 1200 /uL (0-900); Monocytes Percent Auto 8.2 % (3-14); Neutrophils Absolute Auto 11700 /uL (1500-7000); Neutrophils Percent Auto 81.9 % (50-75); Platelet Count 205 X10^3/uL (150-400); Red Cell Distribution Width 12.8 % (11.6-14.8); White Blood Cell Count 14.3 X10^3/uL (4.5-11.0)
[2023-04-20 03:52] LABS: Alanine Aminotransferase 23 IU/L (<50); Albumin 3.8 g/dL (3.5-5.0); Albumin Globulin Ratio 1.1 (1.0-2.8); Alkaline Phosphatase 79 U/L (38-126); Aspartate Aminotransferase 39 IU/L (17-59); BUN Creatinine Ratio 18.7 (6-22); Blood Urea Nitrogen 17 mg/dL (9-20); Calcium 8.9 mg/dL (8.4-10.2); Carbon Dioxide 28 mmol/L (22-32); Chloride 96 mmol/L (98-107); Estimated Glomerular Filt Rate > 60 mL/min (>60); Globulin 3.5 g/dL (1.7-4.1); Glucose 135 mg/dL (80-110); HEMOLYSIS < 15 (0-50); Potassium 3.9 mmol/L (3.4-5.1); Sodium 131 mmol/L (137-145); Total Protein 7.3 g/dL (6.3-8.2)
[2023-04-20 08:00] VITALS: BP 131/80; PULSE 95; RESP 20; TEMP 37.6; O2SAT 96
--- NOTE | 2023-04-20 08:03 | PM.DS.1 ---
History of Present Illness History of Present Illness Date Patient Seen: 04/20/23 Time Patient Seen: 07:30 Chief complaint: INPT Narrative: Patient is a 62 year old male who is post op day #3, overall doing well. Reports slight improvement in his symptoms since surgery. Has been able to successfully work with PT, standing on his own now with the support of a walker. Still has not had a bowel movement but urinating on his own now. States he feels ready to be discharged home today, his will be at home with him to help during his recovery period. Denies chest pain, worsening SOB from baseline, nausea, vomiting, chills, fever. Reports some mild irritation with urinating. Operative Date/Time/Diagnoses Date of procedure: 04/17/23 Time of procedure: 11:40 Pre-op diagnosis: 1. L3-4, L4-5 spinal stenosis with neurogenic claudication 2. L3-4 disc herniation with radiculopathy Post-op diagnosis: same Procedure & Clinicians Procedure: 1. L3-4 Postero-lateral and posterior interbody fusion 2. L3-4 interbody cage placement. 3. L3-4 decompressive laminectomy with bilateral facetecomies 4. L3-4 Posterior non-segmental instrumentation 5. L4-5 left hemilaminectomy 6. [place] of bone marrow from iliac crest 7. Utilization of microsurgical technique and operating microscope Discharge Providers Provider Date of admission: 04/17/23 08:22 Discharge Date: 04/20/23 Primary care physician: REINA Valentine Consults: 04/17/23 14:41 Consult to Occupational Therapy Evaluate & Treat Comment: Physician Instructions: Evaluate and treat Consult to Physical Therapy Evaluate & Treat Comment: Physician Instructions: Evaluate and Treat 04/17/23 14:42 Consult to Hospitalist Service Routine Comment: Consulting Provider: Eyad Glez Reason for consultation: restraints 04/18/23 08:48 Consult to Hospitalist Service Routine Comment: Consulting Provider: [facility] Reason for consultation: Manage respiratory and cardiac symptoms Has provider been notified: Yes Discharge provider: Roseanna Leonardo PA-C Summary Hospital Course Discharge Diagnosis: L3-4, L4-5 spinal stenosis with neurogenic claudication s/p L3-4 TLIF. Hospital Course: Patients hospital course was complicated by the need for mechanical ventilation overnight after his surgery due to his poor respiratory reserve and was admitted to ICU for this reason. He was successfully extubed POD#1. He also had a distended abdomen on POD #1 and emesis with oral intake. Per nursing staff, his abdominal exam was + to percussions indicating gas filled GI tract at that time, this was resolved by POD #2. Exam Vital Signs (past 8 hours): Oxygen Delivery Method Nasal Cannula Oxygen Flow Rate 3 Const General: cooperative Resp Effort & Inspection: normal respiratory effort and able to speak in complete sentences Cardio Rate: regular rate Skin Rashes: no rashes Other: Clean and dry dressing in place over lumbar spine region. Neuro General: patient alert and patient oriented x3 Other: Sensation intact to all four extremities. 5/5 strength with plantar and dorsi flexion. Bilateral knees with full ROM with extension and flexion. Standing and ambulating with a walker for assistance. Extrem Other: Negative Homans No pedal edema Objective Labs // 03:32 04/20/23 03:32 Labs: Laboratory Results - last 24 hr 04/20/ 03:32 WBC 14.3 H RBC 4.00 L Hgb 12.8 L Hct 37.7 L MCV 94.3 MCH 32.0 MCHC 34.0 RDW 12.8 Plt Count 205 Neut % (Auto) 81.9 H Lymph % (Auto) 8.8 L Anson % (Auto) 8.2 Eos % (Auto) 0.7 L Baso % (Auto) 0.4 Neut # (Auto) 45618 H Lymph # (Auto) 1300 [place]son # (Auto) 1200 H Eos # (Auto) 100 Baso # (Auto) 100 Sodium 131 L Potassium 3.9 Chloride 96 L Carbon Dioxide 28 BUN 17 Creatinine 0.91 Estimated GFR > 60 BUN/Creatinine Ratio 18.7 Glucose 135 H Calcium 8.9 Magnesium 2.0 Total Bilirubin 1.0 AST 39 ALT 23 Alkaline Phosphatase 79 Total Protein 7.3 Albumin 3.8 Globulin 3.5 Albumin/Globulin Ratio 1.1 [facility] Medical History (Updated 04/19/23 @ 14:27 by Harika Porter PA-C) Oxygen dependent GERD (gastroesophageal reflux disease) Impaired renal function Numbness Vitamin D deficiency Plantar fasciitis Osteoarthritis Acute dermatitis BPH (benign prostatic hyperplasia) Low back pain Herpes simplex Diabetes Pulmonary fibrosis Chronic hypoxemic respiratory failure Critical illness polyneuropathy COVID-19 long hauler JUVENTINO on CPAP HLD (hyperlipidemia) HTN (hypertension) CVA (cerebral vascular accident) History of COVID-19 Surgical History (Updated 04/19/23 @ 14:27 by Harika Porter PA-C) Hx of tracheostomy (09/05/19) H/O vasectomy History of colonoscopy (01/10/12) Social History household members: spouse and children Smoking Status: Never smoker alcohol intake: current Discharge Assessment & Plan Assessment and Plan Assessment: Stable. Plan of Treatment: Patient is POD# s/p L3-4 TLIF. Overall doing well and happy with his progress thus far. Discussed dressing/wound care, activity restrictions and concerning symptoms to watch for. Discussed with patient dysuria may be a from recent catheter placement, recommended patient to follow up with PCP if this symptom worsens or does not improve. He is progressing well with PT and cleared for d/c to home. Discharge Plan Discharge Plan Patient Disposition: Home Provider Discharge Comment: Follow up with [facility] in 2 weeks. (no sooner than 14 days post-op) Discharge orders & Medications Prescriptions: New docusate sodium 100 mg Capsule 100 mg PO BID PRN (Reason: constipation) Qty: 60 1RF oxycodone 5 mg Tablet 5 mg PO Q4HR PRN (Reason: Pain, Moderate (4-6)) Qty: 60 0RF hydroxyzine HCl 25 mg tablet 25 mg PO QID PRN (Reason: muscle spasm) Qty: 60 0RF Continued aspirin 81 mg Tablet,Delayed Release (Dr/Ec) 81 mg PO DAILY famotidine 20 mg Tablet 20 mg PO BEDTIME simvastatin 20 mg Tablet 20 mg PO BEDTIME telmisartan [Micardis] 40 mg Tablet 40 mg PO BEDTIME Follow up/Referrals: Tha Spangler MD [Physician] - As previously scheduled (Follow up with Chuck Richardson PA-C, on 05/04/2022 @ 4:00 pm at [facility] office in [place].) Betsy Kimble MD [Non-Staff] - Diet/Activity/Treatments Diet: Diet as Tolerated Activity: No deep bending, twisting, or lifting more than 10lbs. Cold/Heat Therapy: Heating pad to low back as needed for muscle spasm, ice as needed for pain control. Other treatments: No bathing or otherwise soaking incisions. Do not apply any creams, lotions, or ointments to incision. Skin/Wound/Dressing Care Report to your healthcare provider any signs of infection, such as:: chills, fever, night sweats, unusual drainage and unusual redness Dressing: May shower. Keep dressing clean and dry, if it becomes saturated or dirty okay to remove and replace with clean, dry gauze. No bathing or otherwise soaking incisions. Do not apply any creams, lotions, or ointments to incision. Visit Report/Discharge Packet Instructions: DI for Prescription Opioid Use, DI for Transforaminal Lumbar Interbody Fusion Stand Alone Forms: Patient Portal/API, Stroke Signs & Symptoms Discharge Data Primary Care Provider: Khloe Jarquin VTE Deep Vein Thrombosis/Pulmonary Embolism Present on Admission: No
[2023-04-20] MEDS: DOCUSATE 100 MG CAPSULE PO (08:04)
[2023-04-20] MEDS: polyethylene glycoL 3350 17 GM POWD.PACK PO (08:04)
[2023-04-20] MEDS: ACETAMINOPHEN 325 MG TABLET 650 MG PO (08:04)
[2023-04-20] MEDS: ASPIRIN EC 81 MG TABLET PO (08:05)
--- NOTE | 2023-04-20 09:40 | P.PN_ITS ---
Subjective Subjective Interval history: Patient back to baseline O2. Hasn't had a BM yet but is passing lots of gas. He would like an enema before he discharges today. Counseled him on taking miralax at home while on oxycodone to prevent constipation. Exam Vital Signs (past 8 hours): - 04/20/23 08:00 Temperature 99.7 F H Pulse Rate 95 H Respiratory Rate 20 Blood Pressure 131/80 Pulse Oximetry 96 Oxygen Delivery Method Nasal Cannula Oxygen Flow Rate 3 Narrative Exam Narrative: Gen: No acute distress CV: regular rate and rhythm Pulm: clear bilaterally Abd: soft, mild distension, non-tender Ext: No edema Objective Labs 04/20/23 03:32 04/20/23 03:32 Labs: Laboratory Results - last 24 hr 04/20/23 03:32 WBC 14.3 H RBC 4.00 L Hgb 12.8 L Hct 37.7 L MCV 94.3 MCH 32.0 MCHC 34.0 RDW 12.8 Plt Count 205 Neut % (Auto) 81.9 H Lymph % (Auto) 8.8 L [place] % (Auto) 8.2 Eos % (Auto) 0.7 L Baso % (Auto) 0.4 Neut # (Auto) 39836 H Lymph # (Auto) 1300 [place] # (Auto) 1200 H Eos # (Auto) 100 Baso # (Auto) 100 Sodium 131 L Potassium 3.9 Chloride 96 L Carbon Dioxide 28 BUN 17 Creatinine 0.91 Estimated GFR > 60 BUN/Creatinine Ratio 18.7 Glucose 135 H Calcium 8.9 Magnesium 2.0 Total Bilirubin 1.0 AST 39 ALT 23 Alkaline Phosphatase 79 Total Protein 7.3 Albumin 3.8 Globulin 3.5 Albumin/Globulin Ratio 1.1 PFSH Medical History (Updated 04/19/23 @ 14:27 by Harika Porter PA-C) Oxygen dependent GERD (gastroesophageal reflux disease) Impaired renal function Numbness Vitamin D deficiency Plantar fasciitis Osteoarthritis Acute dermatitis BPH (benign prostatic hyperplasia) Low back pain Herpes simplex Diabetes Pulmonary fibrosis Chronic hypoxemic respiratory failure Critical illness polyneuropathy COVID-19 long hauler JUVENTINO on CPAP HLD (hyperlipidemia) HTN (hypertension) CVA (cerebral vascular accident) History of COVID-19 Surgical History (Updated 04/19/23 @ 14:27 by Harika Porter PA-C) Hx of tracheostomy (05/07/20) H/O vasectomy History of colonoscopy (01/10/12) Social History household members: spouse and children Smoking Status: Never smoker alcohol intake: current Assessment & Plan Assessment & Plan narrative: 1. Acute on chronic hypoxemic respiratory failure, resolving - now extubated on 3L O2, baseline 2L. He has pulmonary fibrosis from COVID in 2020. - Leukocytosis could be in setting of stress response to surgery, continues to improve. Continue to observe without antibiotics. Respiratory panel negative. Procal low. - wean O2 as tolerated, goal 89-96% while on supplemental therapy. - continue incentive spirometry - borderline fever to 100.3 post operatively, but otherwise no signs of infection - weaned back to 2-3L 2.HTN - continue to hold home telmisartan for now, resume if hypertensive, he is normotensive today. 3. prior CVA - continue home aspirin when appropriate per primary service and statin 4. BPH - not currently on medications 5. S/p spinal surgery for spinal stenosis - management per primary service. 6. Hyponatremia - mild at 133, continue to monitor BMP daily, no current symptoms. 7. Probable post-operative ileus -feels mildly better, no bowel movement yet -continue bowel regimen -passing lots of gas which is reassuring -edema given prior to discharge, will use miralax daily at home Dispo: Dc home today. Quality VTE Deep Vein Thrombosis/Pulmonary Embolism Present on Admission: No
[2023-04-20] MEDS: MINERAL OIL 1 EACH ENEMA PR (10:35)
--- NOTE | 2023-04-20 10:58 | PT-IP ANOTE ---
Pt is currently receiving an enema, not appropriate for PT. PT will check back later this afternoon.
--- NOTE | 2023-04-20 10:59 | CM.DPNOTE ---
DC Note Discharge home today w. spouse to assist in recovery. Close outpatient follow up recommended. No needs identified from this CM team. JW
[2023-04-20] MEDS: OXYCODONE IR 10 MG TABLET PO (13:13)
--- NOTE | 2023-04-20 13:58 | PC.NURSE ---
Discharge Note Pt. continues to be constipated this AM, given Miralax and Docusate, passing flatus frequently. Pt. requested mineral oil enema which was administered approx. 1145, retained for approx. 25 minutes, very small BM noted. Pt. comfortable discharging with home bowel regimen and frequent flatus.
== END 2023-04-20 13:30 | disposition home or self-care (01) | DRG 453 ==
LOC: AC 09:01 → ICU 14:22
PROVIDERS: Internal Medicine; Internal Medicine Critical Care Medicine; Admitting Provider Orthopaedic Surgery Orthopaedic Surgery of the Spine; PCP Nurse Practitioner Family; Referring Provider Orthopaedic Surgery Orthopaedic Surgery of the Spine; Visit Provider Orthopaedic Surgery Orthopaedic Surgery of the Spine
PROC: 0SG00AJ Fusion of Lumbar Vertebral Joint with Interbody Fusion Device, Posterior Approach, Anterior Column, Open Approach (ICD-10-PCS; principal; 2023-04-17 10:45)
DX: M48.062 Spinal stenosis, lumbar region with neurogenic claudication (principal); J96.21 Acute and chronic respiratory failure with hypoxia; K91.89 Other postprocedural complications and disorders of digestive system; K56.7 Ileus, unspecified; E87.1 Hypo-osmolality and hyponatremia; M51.16 Intervertebral disc disorders with radiculopathy, lumbar region; J84.178 Other interstitial pulmonary diseases with fibrosis in diseases classified elsewhere; I10 Essential (primary) hypertension; E78.5 Hyperlipidemia, unspecified; K21.9 Gastro-esophageal reflux disease without esophagitis; Z99.81 Dependence on supplemental oxygen; Z86.73 Personal history of transient ischemic attack (TIA), and cerebral infarction without residual deficits; Z86.16 Personal history of COVID-19
CPT/HCPCS: 36415; 36600; 71045; 72100; 74018; 76000; 80053; 80069; 82805; 82962; 83735; 84145; 85025; 87633; 87797; 93005; 93010; 94002; 94640; 94762; 94799; 97116; 97161; 97165; 97530; 97535; A9270; C1713; C9290; J0171; J0330; J0690; J1170; J2405; J2704; J3010

== ENCOUNTER 2024-04-04 10:15 | Outpatient (RCR) | payer OTHER, SELFPAY ==
[2023-04-17 15:12] VITALS: PULSE 89; RESP 25; O2SAT 100
[2023-04-17 18:05] VITALS: BMI 29.0
== END 2024-04-04 12:00 | disposition home or self-care (01) ==
LOC: PUL 10:15
PROVIDERS: PCP Nurse Practitioner Family; Referring Provider Student in an Organized Health Care Education/Training Program; Visit Provider Student in an Organized Health Care Education/Training Program
DX: J84.9 Interstitial pulmonary disease, unspecified (principal)
CPT/HCPCS: G0237; G0238

== ENCOUNTER → 2024-05-09 10:38 | Outpatient (CLI) | payer MEDICARE, OTHER, SELFPAY ==
[2023-04-17 15:12] VITALS: PULSE 89; RESP 25; O2SAT 100
[2023-04-17 18:05] VITALS: BMI 29.0
== END ==
PROVIDERS: PCP Nurse Practitioner Family; Referring Provider Family Medicine; Visit Provider Family Medicine
DX: R06.00 Dyspnea, unspecified (principal); U09.9 Post COVID-19 condition, unspecified; R94.2 Abnormal results of pulmonary function studies
CPT/HCPCS: 94060; 94618; 94726; 94729

== ENCOUNTER 2024-05-12 10:33 | Emergency (ER) | payer MEDICARE, OTHER, SELFPAY ==
[2023-04-17 15:12] VITALS: PULSE 89; RESP 25; O2SAT 100
[2023-04-17 18:05] VITALS: BMI 29.0
[2024-05-12 10:37] VITALS: BP 118/77; PULSE 94; RESP 16; TEMP 36.5; O2SAT 99; BMI 29.7
[2024-05-12 11:02] LABS: Appearance Urine UA CLEAR; Bilirubin Urine UA NEGATIVE (NEGATIVE); Color Urine UA YELLOW; Glucose Urine UA NEGATIVE (Negative); Ketones Urine UA NEGATIVE (NEGATIVE); Leukocyte Esterase Urine UA 3+ (NEGATIVE); Nitrite Urine UA NEGATIVE (Negative); Occult Blood Urine UA 3+ (Negative); Protein Urine UA NEGATIVE (Negative); Specific Gravity Urine UA <=1.005 (1.000-1.035); Urine Volume 10mL (spun); Urobilinogen Urine UA 0.2 E.U./dL (0.2); pH Urine UA 5.5 (4.5-8.0)
[2024-05-12 11:04] LABS: Bacteria Urine Many (>30); Culture Indicated Urine Specimen Cultured; RBC Urine 1-5/HPF (0-5/HPF); Squamous Epithelial Cell Urine 1-5 /HPF (0-5/HPF); WBC Urine 5-10/HPF (0-5/HPF)
--- NOTE | 2024-05-12 11:05 | PC.NURSE ---
PIV attempt unsuccessful x2, Phlebotomy to get labs.
[2024-05-12 11:30] LABS: Add Manual Diff / Slide Review NO; Basophils Absolute Auto 0 /uL (0-100); Basophils Percent Auto 0.4 % (0-2); Eosinophils Absolute Auto 200 /uL (0-450); Eosinophils Percent Auto 2.6 % (2-4); Hematocrit 42.2 % (41-53); Hemoglobin 14.2 g/dL (13.5-17.5); Lymphocytes Absolute Auto 800 /uL (1100-4500); Lymphocytes Percent Auto 9.2 % (25-40); Mean Corpuscular HGB Conc 33.6 % (30-36); Mean Corpuscular Hemoglobin 31.9 PG (26-34); Mean Corpuscular Volume 94.9 fL (80-100); Monocytes Absolute Auto 800 /uL (0-900); Monocytes Percent Auto 8.3 % (3-14); Neutrophils Absolute Auto 7300 /uL (1500-7000); Neutrophils Percent Auto 79.5 % (50-75); Platelet Count 241 X10^3/uL (150-400); Red Blood Cell Count 4.45 X10^6/uL (4.5-5.9); Red Cell Distribution Width 13.6 % (11.6-14.8); White Blood Cell Count 9.2 X10^3/uL (4.5-11.0)
[2024-05-12 11:36] LABS: INR 1.1 (0.9-1.3); Prothrombin Time 12.2 SECONDS (9.4-12.5)
--- NOTE | 2024-05-12 11:38 | ED.MALEGU ---
HPI - Male Genitourinary <Marisol Hudson PA-C - Last Filed: 05/12/24 12:39> General Chief complaint: Urogenital-Male Stated complaint: blood in urine Time Seen by Provider: 05/12/24 11:19 History of Present Illness HPI Narrative: Mr. Hoyos is a very pleasant 63-year-old male with a past medical history of pulmonary fibrosis s/p COVID 2020 on 2 L home O2, HTN, CKD, prior CVA on aspirin, BPH, spinal stenosis who presents to the emergency department for hematuria x1 day. His contributes to the history. Patient states yesterday he noticed some tinges of blood in his urine. States that the blood is most prominent when he 1st urinates and by the end of urination noticed clear. This morning stated his urine was clear/yellow with no obvious blood. States that he had hematuria in September/October of 2023 and he had to be treated for a UTI. States that he has not had a cystoscopy and 7 years but he does see urologist Dr. Sargent with [facility] about once a year. States he is due for an appointment in June. He admits to slight increased frequency in urination and some pressure at the start of urination but denies dysuria, abdominal pain, flank pain, burning, penile discharge, testicular pain, constipation, diarrhea, melena, hematochezia, fevers, chills, shortness of breath, chest pain, any other concerns. Related Data Home Medications Medication Instructions Recorded Confirmed aspirin 81 mg tablet,delayed 81 mg PO DAILY 04/12/23 04/17/23 release famotidine 20 mg tablet 20 mg PO BEDTIME 04/12/23 04/17/23 simvastatin 20 mg tablet 20 mg PO BEDTIME 04/12/23 04/17/23 telmisartan 40 mg tablet (Micardis) 40 mg PO BEDTIME 04/12/23 04/17/23 Previous Rx's Medication Instructions Recorded docusate sodium 100 mg capsule 100 mg PO BID PRN constipation #60 04/19/23 caps hydroxyzine HCl 25 mg tablet 25 mg PO QID PRN muscle spasm #60 04/19/23 tabs oxycodone 5 mg tablet 5 mg PO Q4HR PRN Pain, Moderate 04/19/23 (4-6) #60 tabs sulfamethoxazole 800 1 tab PO BID 7 days #14 tabs 05/12/24 mg-trimethoprim 160 mg tablet Allergies Allergy/AdvReac Type Severity Reaction Status Date / Time No Known Drug Allergies Allergy Verified 04/17/23 13:43 Review of Systems <Marisol Hudson PA-C - Last Filed: 05/12/24 12:39> Review of Systems ROS Unobtainable: All systems reviewed & are unremarkable except as noted in HPI and below Patient History <Marisol Hudson PA-C - Last Filed: 05/12/24 12:39> Medical History Oxygen dependent GERD (gastroesophageal reflux disease) Impaired renal function Numbness Vitamin D deficiency Plantar fasciitis Osteoarthritis Acute dermatitis BPH (benign prostatic hyperplasia) Low back pain Herpes simplex Diabetes Pulmonary fibrosis Chronic hypoxemic respiratory failure Critical illness polyneuropathy COVID-19 long hauler JUVENTINO on CPAP HLD (hyperlipidemia) HTN (hypertension) CVA (cerebral vascular accident) History of COVID-19 Surgical History Hx of tracheostomy (09/05/19) H/O vasectomy History of colonoscopy (01/10/12) Social History household members: spouse and children Smoking Status: Never smoker alcohol intake: current Smoking Status: Never smoker alcohol intake frequency: holidays/special occasions only Exam <Marisol Hudson PA-C - Last Filed: 05/12/24 12:39> Narrative Exam Narrative: GENERAL: 63 year old patient appears stated age. Well-developed patient, in no acute distress. HEAD: Atraumatic. Normocephalic. CARDIOVASCULAR: Regular rate and rhythm. RESPIRATORY: ?Nonlabored respirations. ?Speaking in clear, full sentences. on 2L nasal cannula. Diffuse crackles throughout lungs, patient states chronic. GASTROINTESTINAL: Abdomen soft, non-tender, nondistended. Normal bowel sounds. BACK: Nontender without deformity or crepitance. No flank tenderness. No CVA tenderness. NEURO: AOx3. ?Clear speech. ?Moves all 4 extremities appropriately. SKIN: No rash or erythema of visible areas Initial Vital Signs Initial Vital Signs: Vital Signs Temperature 97.7 F 05/12/24 10:37 Pulse Rate 94 H 05/12/24 10:37 Respiratory Rate 16 05/12/24 10:37 Blood Pressure 118/77 05/12/24 10:37 Pulse Oximetry 99 05/12/24 10:37 Oxygen Delivery Method Room Air 05/12/24 10:37 <Anna Tang MD - Last Filed: 05/14/24 07:28> Initial Vital Signs Initial Vital Signs: Vital Signs Temperature 97.7 F 05/12/24 10:37 Pulse Rate 94 H 05/12/24 10:37 Respiratory Rate 16 05/12/24 10:37 Blood Pressure 118/77 05/12/24 10:37 Pulse Oximetry 99 05/12/24 10:37 Oxygen Delivery Method Room Air 05/12/24 10:37 Course <Marisol Hudson PA-C - Last Filed: 05/12/24 12:39> Orders Ordered: Discontinued Medications Ondansetron HCl (Ondansetron 4 Mg/2 Ml Inj) 4 mg IV NOW PRN PRN Reason: Nausea And Vomiting Ondansetron HCl (Ondansetron 4 Mg Odt) 4 mg PO NOW PRN PRN Reason: Nausea And Vomiting Vital Signs Vital signs: Vital Signs - 8 hr 05/12/24 10:37 Temperature 97.7 F Pulse Rate 94 H Respiratory Rate 16 Blood Pressure 118/77 Pulse Oximetry 99 Oxygen Delivery Method Room Air <Anna Tang MD - Last Filed: 05/14/24 07:28> Orders Ordered: Discontinued Medications Ondansetron HCl (Ondansetron 4 Mg/2 Ml Inj) 4 mg IV NOW PRN PRN Reason: Nausea And Vomiting Ondansetron HCl (Ondansetron 4 Mg Odt) 4 mg PO NOW PRN PRN Reason: Nausea And Vomiting Vital Signs Vital signs: Vital Signs - 8 hr 05/12/24 10:37 Temperature 97.7 F Pulse Rate 94 H Respiratory Rate 16 Blood Pressure 118/77 Pulse Oximetry 99 Oxygen Delivery Method Room Air MDM - Male Genitourinary <Marisol Hudson PA-C - Last Filed: 05/12/24 12:39> Medical Records Attestation: I reviewed the patient's medical records. Lab Data 05/12/24 11:21 05/12/24 11:21 Labs: Lab Results 05/12/24 05/12/24 Range/Units 10:46 11:21 WBC 9.2 (4.5-11.0) X10^3/uL RBC 4.45 L (4.5-5.9) X10^6/uL Hgb 14.2 (13.5-17.5) g/dL Hct 42.2 (41-53) % MCV 94.9 (80-100) fL MCH 31.9 (26-34) PG MCHC 33.6 (30-36) % RDW 13.6 (11.6-14.8) % Plt Count 241 (150-400) X10^3/uL Neut % (Auto) 79.5 H (50-75) % Lymph % (Auto) 9.2 L (25-40) % [place] % (Auto) 8.3 (3-14) % Eos % (Auto) 2.6 (2-4) % Baso % (Auto) 0.4 (0-2) % Neut # (Auto) 7300 H (2187-2484) /uL Lymph # (Auto) 800 L (0841-1807) /uL [place] # (Auto) 800 (0-900) /uL Eos # (Auto) 200 (0-450) /uL Baso # (Auto) 0 (0-100) /uL PT 12.2 (9.4-12.5) SECONDS INR 1.1 (0.9-1.3) Sodium 136 L (137-145) mmol/L Potassium 3.9 (3.4-5.1) mmol/L Chloride 102 (98-107) mmol/L Carbon Dioxide 27 (22-32) mmol/L BUN 20 (9-20) mg/dL Creatinine 1.33 H (0.66-1.25) mg/dL Estimated GFR > 60 (>60) mL/min BUN/Creatinine Ratio 15.0 (6-22) Glucose 128 H (80-110) mg/dL Calcium 9.3 (8.4-10.2) mg/dL Total Bilirubin 0.6 (0.2-1.3) mg/dL AST 28 (17-59) IU/L ALT 24 (<50) IU/L Alkaline Phosphatase 99 (38-126) U/L Total Protein 7.7 (6.3-8.2) g/dL Albumin 4.5 (3.5-5.0) g/dL Globulin 3.2 (1.7-4.1) g/dL Albumin/Globulin Ratio 1.4 (1.0-2.8) Lipase 231 (23-300) U/L Urine Color Yellow Urine Appearance Clear Urine pH 5.5 (4.5-8.0) Ur Specific Sand[place] <=1.005 (1.000-1.035) Urine Protein Negative (Negative) Urine Glucose (UA) Negative (Negative) g/dL Urine Ketones Negative (NEGATIVE) Urine Occult Blood 3+ H (Negative) Urine Nitrate Negative (Negative) Urine Bilirubin Negative (NEGATIVE) Urine Urobilinogen 0.2 (0.2) E.U./dL Ur Leukocyte Esterase 3+ H (NEGATIVE) Urine RBC 1-5/hpf (0-5/HPF) Urine WBC 5-10/hpf H (0-5/HPF) Ur Squamous Epith Cells 1-5 /hpf (0-5/HPF) Urine Bacteria Many (>30) H (None) Ur Culture Indicated? Specimen cultured Vol Urine Centrifuged 10ml (spun) MDM Narrative Medical decision making narrative: Very pleasant 63-year-old male with a past medical history of pulmonary fibrosis s/p COVID 2020 on 2 L home O2, HTN, CKD, prior CVA on aspirin, BPH, spinal stenosis who presents to the emergency department for hematuria x1 day. His contributes to the history. Differential diagnosis includes but is not limited to UTI, nephrolithiasis, ureteral stricture, bladder carcinoma, glomerulonephritis, pyelonephritis, prostatitis, BPH, anemia, thrombocytopenia, etc. On exam the patient is in no acute distress, nontoxic-appearing, all vital signs within normal limits on his home 2 L O2 nasal cannula. Abdomen soft and nontender, normal bowel sounds. Patient denies any abdominal pain, flank pain, pain with defecation or urination. Does have some increased frequency and some pressure at the start of urination. He does have a history of UTI with hematuria last year and BPH. He has having no difficulty emptying his bladder. We will obtain urinalysis and basic labs. No indication for emergent imaging at this time as patient is having no pain. Labs reveal normal WBC count of 9.2. Hemoglobin 14.2, hematocrit 42.2. Neutrophils 79.5. Normal PT INR. Sodium 136 improved from baseline. BUN 20, creatinine 1.33, history of CKD, this is his baseline (review labs on pt cell phone, last Cr 1.38 in Mar 2024.) UA reveals 3+ occult blood, 1-5 urine RBCs, 5-10 urine WBCs, many bacteria. Specimen sent for culture. We will treat patient as acute UTI with hematuria with TMP/SMX b.i.d. x7 days. Patient denies any antibiotic allergies. I did recommend the patient follow up with Urology for possible cystoscopy and further evaluation. He does have a urologist with [facility] but is interested in following up with [facility], information provided. Patient verbalized understanding of all information, is agreeable to the plan, is stable for discharge home. <Anna Tang MD - Last Filed: 05/14/24 07:28> Lab Data Labs: Lab Results 05/12/24 05/12/24 Range/Units 10:46 11:21 WBC 9.2 (4.5-11.0) X10^3/uL RBC 4.45 L (4.5-5.9) X10^6/uL Hgb 14.2 (13.5-17.5) g/dL Hct 42.2 (41-53) % MCV 94.9 (80-100) fL MCH 31.9 (26-34) PG MCHC 33.6 (30-36) % RDW 13.6 (11.6-14.8) % Plt Count 241 (150-400) X10^3/uL Neut % (Auto) 79.5 H (50-75) % Lymph % (Auto) 9.2 L (25-40) % [place] % (Auto) 8.3 (3-14) % Eos % (Auto) 2.6 (2-4) % Baso % (Auto) 0.4 (0-2) % Neut # (Auto) 7300 H (7640-9737) /uL Lymph # (Auto) 800 L (1650-4345) /uL [place] # (Auto) 800 (0-900) /uL Eos # (Auto) 200 (0-450) /uL Baso # (Auto) 0 (0-100) /uL PT 12.2 (9.4-12.5) SECONDS INR 1.1 (0.9-1.3) Sodium 136 L (137-145) mmol/L Potassium 3.9 (3.4-5.1) mmol/L Chloride 102 (98-107) mmol/L Carbon Dioxide 27 (22-32) mmol/L BUN 20 (9-20) mg/dL Creatinine 1.33 H (0.66-1.25) mg/dL Estimated GFR > 60 (>60) mL/min BUN/Creatinine Ratio 15.0 (6-22) Glucose 128 H (80-110) mg/dL Calcium 9.3 (8.4-10.2) mg/dL Total Bilirubin 0.6 (0.2-1.3) mg/dL AST 28 (17-59) IU/L ALT 24 (<50) IU/L Alkaline Phosphatase 99 (38-126) U/L Total Protein 7.7 (6.3-8.2) g/dL Albumin 4.5 (3.5-5.0) g/dL Globulin 3.2 (1.7-4.1) g/dL Albumin/Globulin Ratio 1.4 (1.0-2.8) Lipase 231 (23-300) U/L Urine Color Yellow Urine Appearance Clear Urine pH 5.5 (4.5-8.0) Ur Specific [place] <=1.005 (1.000-1.035) Urine Protein Negative (Negative) Urine Glucose (UA) Negative (Negative) g/dL Urine Ketones Negative (NEGATIVE) Urine Occult Blood 3+ H (Negative) Urine Nitrate Negative (Negative) Urine Bilirubin Negative (NEGATIVE) Urine Urobilinogen 0.2 (0.2) E.U./dL Ur Leukocyte Esterase 3+ H (NEGATIVE) Urine RBC 1-5/hpf (0-5/HPF) Urine WBC 5-10/hpf H (0-5/HPF) Ur Squamous Epith Cells 1-5 /hpf (0-5/HPF) Urine Bacteria Many (>30) H (None) Ur Culture Indicated? Specimen cultured Vol Urine Centrifuged 10ml (spun) Discharge Plan Departure Patient Disposition: Home Clinical Impression: Urinary tract infection with hematuria Qualifiers: Urinary tract infection type: site unspecified Qualified Code(s): N39.0 - Urinary tract infection, site not specified Instructions: DI for Urinary Tract Infection (UTI) Activity Restrictions/Additional Instructions: Today you were evaluated for blood in your urine. Your urine test revealed signs of a urinary tract infection with blood. I am treating with an antibiotic that you need to take twice a day for the next 7 days. It is also very important to follow up with the urologist for further evaluation and possible cystoscopy. You may follow up with Dr. Yaya Campa here at [facility]. You may call [phone] to schedule an appointment. If you develop pain, fevers, increasing bleeding or any other concerns please return to the emergency room. Please follow up with your primary care doctor within the next 2-3 days for ER follow-up. (If you do not have a PCP you can call [phone]. ?to schedule an appointment with an [facility] Primary Care Provider) IF YOU DEVELOP ANY NEW OR WORSENING SYMPTOMS, RETURN TO THE ER! Please read the attached instructions, they highlight more specific treatments and interventions for you at home. Thank you for letting me participate in your care, Marisol Hudson PA-C Prescriptions: New sulfamethoxazole-trimethoprim 800-160 mg tablet 1 tab PO BID 7 Days Qty: 14 0RF No Action aspirin 81 mg Tablet,Delayed Release (Dr/Ec) 81 mg PO DAILY famotidine 20 mg Tablet 20 mg PO BEDTIME simvastatin 20 mg Tablet 20 mg PO BEDTIME telmisartan [Micardis] 40 mg Tablet 40 mg PO BEDTIME docusate sodium 100 mg Capsule 100 mg PO BID PRN (Reason: constipation) Qty: 60 1RF oxycodone 5 mg Tablet 5 mg PO Q4HR PRN (Reason: Pain, Moderate (4-6)) Qty: 60 0RF hydroxyzine HCl 25 mg tablet 25 mg PO QID PRN (Reason: muscle spasm) Qty: 60 0RF Referrals: Khloe Jarquin ARNP [Primary Care Provider] - Stand Alone Forms: Patient Portal/API/Survey ED Sign-out <Anna Tang MD - Last Filed: 05/14/24 07:28> Cosign ED Attending Lesly Attestation: I was immediately available in the department for consultation throughout this patient's visit. Anna Tang MD
[2024-05-12 11:41] LABS: Alanine Aminotransferase 24 IU/L (<50); Albumin 4.5 g/dL (3.5-5.0); Albumin Globulin Ratio 1.4 (1.0-2.8); Alkaline Phosphatase 99 U/L (38-126); Aspartate Aminotransferase 28 IU/L (17-59); Bilirubin Total 0.6 mg/dL (0.2-1.3); Blood Urea Nitrogen 20 mg/dL (9-20); Calcium 9.3 mg/dL (8.4-10.2); Carbon Dioxide 27 mmol/L (22-32); Chloride 102 mmol/L (98-107); Estimated Glomerular Filt Rate > 60 mL/min (>60); Globulin 3.2 g/dL (1.7-4.1); Glucose 128 mg/dL (80-110); HEMOLYSIS < 15 (0-50); Lipase 231 U/L (23-300); Potassium 3.9 mmol/L (3.4-5.1); Sodium 136 mmol/L (137-145); Total Protein 7.7 g/dL (6.3-8.2)
[2024-05-12 13:05] VITALS: BP 109/63; PULSE 77; RESP 22; O2SAT 98
[2024-05-12 13:06] VITALS: BP 109/63; PULSE 77; RESP 22; O2SAT 98
== END 2024-05-12 13:09 | disposition home or self-care (01) ==
PROVIDERS: Emergency Medicine; Emergency Provider Physician Assistant; PCP Nurse Practitioner Family
DX: N39.0 Urinary tract infection, site not specified (principal); R31.9 Hematuria, unspecified; M54.6 Pain in thoracic spine; Z87.442 Personal history of urinary calculi
CPT/HCPCS: 36415; 80053; 81001; 83690; 85025; 85610; 87077; 87086; 87186; 99284

== ENCOUNTER → 2024-08-21 12:54 | Outpatient (CLI) | payer MEDICARE, OTHER, SELFPAY ==
[2023-04-17 15:12] VITALS: PULSE 89; RESP 25; O2SAT 100
[2023-04-17 18:05] VITALS: BMI 29.0
--- NOTE | 2024-08-21 12:56 | DI.US.S_ITS ---
PROCEDURE: US HERNIA INDICATIONS: L GROIN PAIN;WORSE WITH COUGHING/R/O HERNIA TECHNIQUE: Real-time focused scanning was performed of the inguinal region, with image documentation. COMPARISON: [facility], CT, CT IVP, 06/05/2024, 13:11. FINDINGS: No hernia is identified. Complex cystic structure with soft tissue on the edges with vascularity, ill-defined borders. Measures approximately 8.3 x 3.5 x 1.6 cm. Noncompressible. IMPRESSION: Complex cystic structure as above within the left groin measuring up to 8.3 cm. No abnormality is seen in this region on prior CT 06/05/2024. Consider etiology such as hematoma, correlate with trauma in this region. Recommend follow-up ultrasound to assess for improvement or repeat CT for further evaluation. Dictated by: Ferny Watkins M.D. on 08/22/2024 at 10:46 Approved by: Ferny Watkins M.D. on 08/22/2024 at 10:53
== END ==
PROVIDERS: PCP Family Medicine; Referring Provider Family Medicine; Visit Provider Family Medicine
DX: R10.2 Pelvic and perineal pain (principal); R19.09 Other intra-abdominal and pelvic swelling, mass and lump
CPT/HCPCS: 76705

== ENCOUNTER → 2024-08-24 10:01 | Outpatient (CLI) | payer MEDICARE, OTHER, SELFPAY ==
[2023-04-17 15:12] VITALS: PULSE 89; RESP 25; O2SAT 100
[2023-04-17 18:05] VITALS: BMI 29.0
--- NOTE | 2024-08-24 10:02 | DI.CT.S_ITS ---
PROCEDURE: CT ABDOMEN PELVIS WO CON INDICATIONS: Pelvic and perineal pain TECHNIQUE: Axial sections were acquired from the lung bases to the pubic symphysis. Coronal and sagittal reformats were performed. For radiation dose reduction, the following was used: automated exposure control, adjustment of mA and/or kV according to patient size. COMPARISON: None. FINDINGS: Image quality: Diagnostic. Lower Chest: Mild bilateral lower lung fibrotic changes. Heart size at the upper limits of normal with heavy coronary artery calcification. ABDOMEN: Liver: Mild hepatic steatosis. No contour deforming mass. Gallbladder: Distended gallbladder with intraluminal calcifications dependently layering. No wall thickening. Biliary ducts: No biliary dilation. Pancreas: No ductal dilation. Spleen: Size is within normal limits. Adrenal Glands: No adrenal nodules. Kidneys: Normal renal size. Punctate, nonobstructing right intrarenal calculus. No hydronephrosis or hydroureter. Stomach and Bowel: Stomach and small bowel loops are normal caliber. Normal appendix. Normal quantity of colonic stool. No suspicious colon wall thickening or inflammation. Peritoneum: No abnormal intraperitoneal fluid. No free air. Ventral Wall: No hernia. Abdominal Nodes: No enlarged retroperitoneal or mesenteric lymph nodes. Vessels: Normal caliber abdominal aorta. Flattened IVC and normal portal vein. PELVIS: Pelvic Organs: Moderate prostatomegaly. Bladder: No stones or wall thickening. Pelvic Nodes: Unremarkable. Miscellaneous: Small bilateral fat containing direct inguinal hernias are present. Since the prior CT on 06/05/24, there has been development of a small amount of soft tissue density layering the posterior aspect of the left inguinal canal corresponding to the ultrasound finding. There is very minor adjacent fat stranding within the spermatic cord. Bones: Bridging syndesmophytes in the lower thoracic spine. Posterior vertebral body fusion at the L3-4 level. IMPRESSION: Development of small amount of indeterminate material in the posterior aspect of the left spermatic cord, probably small amount of evolving hemorrhage or seroma. No discrete new hernia is seen. Findings are superimposed on small bilateral fat containing direct inguinal hernias. Incidental note of cholelithiasis, mild hepatic steatosis, and punctate right intrarenal calculus for examples. Dictated by: Marcela Goodrich M.D. on 08/25/2024 at 16:24 Approved by: Marcela Goodrich M.D. on 08/25/2024 at 16:39
== END ==
PROVIDERS: PCP Family Medicine; Referring Provider Family Medicine; Visit Provider Family Medicine
DX: K40.20 Bilateral inguinal hernia, without obstruction or gangrene, not specified as recurrent (principal); K80.20 Calculus of gallbladder without cholecystitis without obstruction; N20.0 Calculus of kidney; K76.0 Fatty (change of) liver, not elsewhere classified; I25.10 Atherosclerotic heart disease of native coronary artery without angina pectoris; N40.0 Benign prostatic hyperplasia without lower urinary tract symptoms; R10.2 Pelvic and perineal pain
CPT/HCPCS: 74176

== ENCOUNTER 2024-10-30 08:27 | Day surgery (SDC) | payer MEDICARE, OTHER, SELFPAY ==
[2023-04-17 15:12] VITALS: PULSE 89; RESP 25; O2SAT 100
[2023-04-17 18:05] VITALS: BMI 29.0
[2024-10-30] VITALS (8 sets, daily range): BP systolic 94–122; BP diastolic 46–72; PULSE 81–103; RESP 12–28; TEMP 36.1–36.6; O2SAT 92–98
[2024-10-30] MEDS: LACTATED RINGERS 1,000 ML 42 ML IV (10:15)
--- NOTE | 2024-10-30 10:26 | PM.HP.IH.1 ---
History of Present Illness History of Present Illness Date Patient Seen: 10/30/24 Time Patient Seen: 10:26 Chief complaint: SDC Narrative: 63 year old man with bilateral inguinal hernias. See the prior office note for details. [facility] Medical History (Updated 10/02/24 @ 13:17 by Krystal Greene RN) Hematuria CKD (chronic kidney disease) Femoral artery stenosis BPH (benign prostatic hyperplasia) History of cardiac arrest Chronic inflammatory demyelinating neuropathy Oxygen dependent GERD (gastroesophageal reflux disease) Impaired renal function Numbness Vitamin D deficiency Plantar fasciitis Osteoarthritis Acute dermatitis Low back pain Herpes simplex Diabetes Pulmonary fibrosis Chronic hypoxemic respiratory failure Critical illness polyneuropathy COVID-19 long hauler JUVENTINO on CPAP HLD (hyperlipidemia) HTN (hypertension) CVA (cerebral vascular accident) History of COVID-19 Surgical History (Updated 10/02/24 @ 13:08 by Krystal Greene RN) Hx of tracheostomy (09/05/19) H/O vasectomy History of colonoscopy (01/10/12) Social History household members: spouse and children Smoking Status: Never smoker alcohol intake: current Meds Home Medications and Allergies Home Medications ?Medication ?Instructions ?Recorded ?Confirmed ?Type aspirin 81 mg tablet,delayed 81 mg PO DAILY 04/12/23 10/30/24 History release famotidine 20 mg tablet 20 mg PO BEDTIME 04/12/23 10/30/24 History simvastatin 20 mg tablet 20 mg PO BEDTIME 04/12/23 10/30/24 History telmisartan 40 mg tablet (Micardis) 40 mg PO BEDTIME 04/12/23 10/30/24 History docusate sodium 100 mg capsule 100 mg PO BID PRN constipation #60 04/19/23 10/30/24 Rx caps albuterol sulfate 90 mcg/actuation 2 puff inhalation Q6H PRN 09/24/24 10/30/24 History aerosol inhaler shortness of breath or wheezing metformin 500 mg tablet 500 mg PO DAILY 09/24/24 10/30/24 History tamsulosin 0.4 mg capsule 0.4 mg PO DAILY 09/24/24 10/30/24 History valacyclovir 500 mg tablet 500 mg PO DAILY PRN cold sor 09/24/24 10/30/24 History ketoconazole 2 % topical cream applic topical 10/30/24 History lidocaine 5 % topical patch 1 patch topical DAILY 10/30/24 10/30/24 History Allergies Allergy/AdvReac Type Severity Reaction Status Date / Time No Known Drug Allergies Allergy Verified 10/30/24 09:56 Exam Vital Signs (past 8 hours): - 10/30/24 10:09 Temperature 97 F L Pulse Rate 82 Respiratory Rate 14 Blood Pressure 112/72 Pulse Oximetry 96 Oxygen Delivery Method Room Air Oxygen Delivery Method Room Air Const General: No acute distress Resp Effort & Inspection: normal respiratory effort Objective Labs Labs: Laboratory Results - last 24 hr 10/30/24 10:02 POC Whole Bld Glucose 112 H Assessment & Plan Assessment and plan (1) Bilateral inguinal hernia: Qualifiers: Obstruction and gangrene presence: without obstruction or gangrene Recurrence: not specified as recurrent Qualified Code(s): K40.20 - Bilateral inguinal hernia, without obstruction or gangrene, not specified as recurrent Status: Acute Plan Robotic bilateral inguinal hernia repair with mesh Time-Based Coding :: [TOTAL MINUTES] spent with patient and on the chart (including review of chart, obtaining history, exam, reviewing outside data, placing orders, documenting exam and treatment plan, and counseling patient) on [DATE]. PROFEE Sex Offender Treatment Professional Document charge(s): No
[2024-10-30] MEDS: ACETAMINOPHEN IV 1,000 MG/100 ML VIAL 400 MG IV (10:32)
--- NOTE | 2024-10-30 11:19 | P.OP.PRE_ITS ---
Pre-operative Note COVID-19 COVID-19 status: Not tested Interval Note History & Physical reviewed/Exam performed by Physician: Yes Changes to H&P: No H&P completed within 30 days and has changed as indicated here:: After discussi on of risks and benefits of general endotracheal anesthesia Alo decided to proceed with open left inguinal hernia repair with mesh ASA Class (for procedural sedation): III
[2024-10-30] MEDS: CEFAZOLIN 2 GM/100 ML PREMIX 100 ML IV (11:24)
[2024-10-30] MEDS: BUPIVACAINE 0.5% W/ EPI (PF) 30 ML VIAL INJ (11:44)
--- NOTE | 2024-10-30 11:46 | SUR.OPER ---
Supine on padded OR bed, head on pillow, arms secured on padded arm boards at <90 degrees abduction, legs uncrossed, safety belt at thigh, tape over blanket over lower legs.
--- NOTE | 2024-10-30 12:53 | P.OP_ITS ---
Operative Date/Time/Diagnoses Date of procedure: 10/30/24 Time of procedure: 12:53 Pre-op diagnosis: Left inguinal hernia Post-op diagnosis: same Procedure & Clinicians Procedure: Open left inguinal hernia repair with mesh Same procedure(s) as scheduled: Yes Surgeon: Matteo Wilson Marketing Assistant: Favio Palafox Anesthesia Type: General Operative Notes Findings: Large indirect defect Applied: none Estimated Blood Loss (mL): 20 Procedure in detail: Preoperative antibiotic was administered. The patient was brought to the operating room and placed on the table in supine position general anesthesia was induced. The left groin was prepped and draped in the normal fashion and a time-out was performed. Roughly 10 mL of local anesthetic were injected into the skin and subcutaneous adipose tissue over the left groin. A 7 cm incision was made over the left inguinal canal. Dissection was carried down through the subcutaneous adipose tissue. A bridging vein was cauterized. We exposed the external oblique aponeurosis in the direction of the fibers. Additional local was injected deep to the aponeurosis. A 15 blade scalpel was used to brandon the external oblique aponeurosis. Metzenbaum scissors were used to carefully open the aponeurosis in the direction of the fibers taking care not to injure the underlying ilioinguinal nerve which was well seen and protected. We completely exposed the inguinal canal. The cord was dissected free from the inguinal ligament and floor of the inguinal canal and the external oblique aponeurosis was dissected off of the internal oblique taking care not to injure the hypogastric nerve. We encircled the cord with a Minco drain for retraction. There was evidence of a large indirect defect. The fatty component was reduced into the abdominal cavity. We placed a polypropylene mesh over the inguinal canal floor. The mesh was secured with multiple interrupted 3-0 Prolene sutures to the pubic tubercle and shelving edge of the inguinal ligament as well as to the conjoint tendon medially. We overlapped the tails to recreate an internal ring and secured the medial tail to the inguinal ligament with additional sutures. We injected some more local into the fatty tissue in the inguinal canal and cord. Finally, we removed the Minco drain and closed the external oblique fascia with a running 3-0 Vicryl suture. Skin was closed with interrupted 3-0 Vicryl dermal sutures and a running 4 Monocryl subcuticular stitch. EBL 20 mL The patient was awakened and brought to recovery room. Favio DILLON provided assistance with exposure, retraction and closure of incisions. Complications: none Post-operative Condition: stable Disposition: PACU
[2024-10-30] MEDS: ALBUTEROL 2.5 MG/3 ML NEB (ADULT) INH (13:16)
== END 2024-10-30 14:30 | disposition home or self-care (01) ==
PROVIDERS: PCP Family Medicine; Referring Provider Surgery; Visit Provider Surgery
PROC: 0YQ64ZZ Repair Left Inguinal Region, Percutaneous Endoscopic Approach (ICD-10-PCS; CPT 49505; principal; 2024-10-30 10:45)
DX: K40.90 Unilateral inguinal hernia, without obstruction or gangrene, not specified as recurrent (principal); G47.33 Obstructive sleep apnea (adult) (pediatric); K21.9 Gastro-esophageal reflux disease without esophagitis; E11.22 Type 2 diabetes mellitus with diabetic chronic kidney disease; I12.9 Hypertensive chronic kidney disease with stage 1 through stage 4 chronic kidney disease, or unspecified chronic kidney disease; N18.9 Chronic kidney disease, unspecified; N40.0 Benign prostatic hyperplasia without lower urinary tract symptoms; E78.5 Hyperlipidemia, unspecified; Z86.73 Personal history of transient ischemic attack (TIA), and cerebral infarction without residual deficits; Z86.74 Personal history of sudden cardiac arrest; Z99.81 Dependence on supplemental oxygen
CPT/HCPCS: 49505; 82962; C1781; J0131; J0330; J0690; J1100; J2250; J2405; J2704; J3010; J7613

== ENCOUNTER → 2025-02-06 14:33 | Outpatient (CLI) | payer MEDICARE, OTHER, SELFPAY ==
[2023-04-17 15:12] VITALS: PULSE 89; RESP 25; O2SAT 100
[2023-04-17 18:05] VITALS: BMI 29.0
--- NOTE | 2025-02-06 14:43 | DI.US.S_ITS ---
PROCEDURE: US SCROTUM INDICATIONS: RIGHT TESTICULAR LUMP. RECENT AND CHRONIC UTI. TECHNIQUE: Real-time scanning was performed of the scrotum and testicles, with image documentation. Color and pulse Doppler interrogation was performed of both testicles. COMPARISON: [facility], CT, CT ABDOMEN PELVIS WO CON, 08/24/2024, 10:09. [facility], US, US HERNIA, 08/21/2024, 13:31. FINDINGS: Right: Testicle is normal in size at 4.3 x 2.0 x 1.8 cm, and heterogeneous in echotexture. Epididymis is normal in overall size and morphology. No hydrocele or varicoceles. Ill-defined complex appearing fluid collection is noted superior to right testes and corresponds to patient's reported area of palpable lump measures up to 1.7 x 1.3 x 1.0 cm in size and show mild peripheral vascularity. This is in close association to the right spermatic cord. Surrounding hyperemic soft tissue is noted. Left: Testicle is normal in size at 3.7 x 2.0 x 1.9 cm, and heterogeneous in echotexture. Epididymis is normal in overall size and morphology. Trace left- sided hydrocele. No varicoceles. Overlying scrotal skin is normal in thickness. Doppler: Color and pulse Doppler demonstrate increased arterial flow in both testes. IMPRESSION: 1. Increase vascularity in bilateral testes with heterogeneous testicular echotexture concerning for orchitis. No solid appearing testicular lesion. 2. Ill-defined complex fluid collection adjacent to right testes as described above with increased surrounding vascularity concerning for infectious process such as early abscess formation. Surrounding cellulitis is also noted in right inguinal region. Urological correlation and follow-up is recommended. Dictated by: Sergei Venegas M.D. on 02/06/2025 at 17:03 Approved by: Sergei Venegas M.D. on 02/06/2025 at 17:07
== END ==
PROVIDERS: PCP Family Medicine; Referring Provider Family Medicine; Visit Provider Surgery
DX: N50.89 Other specified disorders of the male genital organs (principal); K40.90 Unilateral inguinal hernia, without obstruction or gangrene, not specified as recurrent; L03.818 Cellulitis of other sites; Z68.29 Body mass index [BMI] 29.0-29.9, adult
CPT/HCPCS: 76870; 99214

== ENCOUNTER → 2025-03-20 11:48 | Outpatient (CLI) | payer MEDICARE, OTHER, SELFPAY ==
[2023-04-17 15:12] VITALS: PULSE 89; RESP 25; O2SAT 100
[2023-04-17 18:05] VITALS: BMI 29.0
--- NOTE | 2025-03-20 11:49 | DI.US.S_ITS ---
PROCEDURE: US SCROTUM INDICATIONS: scrotal swelling/edema TECHNIQUE: Real-time scanning was performed of the scrotum and testicles, with image documentation. Color and pulse Doppler interrogation was performed of both testicles. COMPARISON: [facility], , US SCROTUM, 02/06/2025, 15:01. FINDINGS: Right: Testicle is normal in size at 3.7 x 1.8 x 2.1 cm, and homogenous in echotexture. Epididymis is normal in overall size and morphology. No hydrocele or varicoceles. Overlying scrotal skin is normal in thickness. Right inguinal area is negative. Left: Testicle is normal in size at 3.4 x 1.8 x 2.1 cm, and homogeneous in echotexture. Epididymis is normal in overall size and morphology. Small hydrocele. No varicoceles. Overlying scrotal skin is normal in thickness. Doppler: Color and pulse Doppler demonstrate normal and symmetric arterial flow in both testicles. IMPRESSION: Resolution of prior likely infectious process. The testes and epididymides are normal in appearance. Small left hydrocele. Dictated by: Ferny Watkins M.D. on 03/21/2025 at 11:04 Approved by: Ferny Watkins M.D. on 03/21/2025 at 11:12
== END ==
LOC: US 11:49
PROVIDERS: PCP Family Medicine; Referring Provider Urology; Visit Provider Urology
DX: N45.1 Epididymitis (principal); N43.3 Hydrocele, unspecified
CPT/HCPCS: 76870; 93975